=== PATIENT | male | born 1995 | race Caucasian/White ===

== ENCOUNTER 2019-11-13 22:02 | Emergency (ER) | payer SELFPAY ==
[2019-11-13 22:22] VITALS: BP 156/97; PULSE 109; RESP 14; TEMP 36.9; O2SAT 97; BMI 38.0
== END 2019-11-14 01:33 ==
PROVIDERS: Emergency Provider Physician Assistant
DX: Z53.21 Procedure and treatment not carried out due to patient leaving prior to being seen by health care provider (principal)
CPT/HCPCS: 99281

== ENCOUNTER 2020-04-15 14:11 | Emergency (ER) | payer SELFPAY ==
[2020-04-15 14:12] VITALS: BP 137/91; PULSE 94; RESP 18; TEMP 37; O2SAT 98; BMI 33.9
--- NOTE | 2020-04-15 14:16 | XR_ITS ---
WS: [id number] XR ankle LT min 3V* [id number] REASON FOR EXAM: injury FINDINGS: The ankle mortise is intact. No fracture or focal bone lesion. Soft tissue swelling without other soft tissue abnormality XR/XR ankle LT min 3V* [id number] IMPRESSION: No acute abnormality.
[2020-04-15 15:15] VITALS: PULSE 95; O2SAT 96
--- NOTE | 2020-04-15 15:17 | W.ED.EXTPRO ---
HPI - Extremity Problem General: Chief complaint: Extremity Injury, Lower Stated complaint: left ankle injury Time Seen by Provider: 04/15/20 14:13 Source: patient Mode of arrival: ambulatory Limitations: no limitations History of Present Illness: HPI Narrative: 24-year-old male patient presents to the emergency department complaining of left ankle pain. Patient states he rolled his ankle a few days ago. Patient states the swelling has progressed and the pain has worsened. Patient denies any other injury or trauma. Patient states he has good sensation to his ankle. Review of Systems General: Reports: 10 or more systems reviewed and unremarkable except in HPI and below Musc: Reports: extremity pain and extremity swelling; Denies: neck pain or back pain Physical Exam Const: COMMON NORMALS: no acute distress, average body habitus, patient oriented x3, no limitations, healthy appearing, alert and well nourished Extremity: LEFT LOWER EXTREMITY: Yes ankle joint (Patient has no obvious deformity but does have area of edema to the medial ) Left ankle: Yes neurovascular exam (Patient is neurovascularly intact distal to injury) Neuro: COMMON NORMALS: patient oriented x3 SENSORIUM/ORIENTATION: Yes alert Course Vital Signs: Vital signs: Vital Signs Temperature 98.6 F 04/15/20 14:12 Pulse Rate 95 04/15/20 15:15 Respiratory Rate 18 04/15/20 14:12 Blood Pressure 137/91 04/15/20 14:12 Pulse Oximetry 96 04/15/20 15:15 MDM - Extremity (Nontraumatic) MDM Narrative: Medical decision making narrative: Patient is well-appearing nontoxic and in no acute distress. Patient is neurovascularly intact distal to injury. Patient's x-ray does not show any acute fractures or dislocations. Patient's findings are consistent with a ankle sprain. I will put patient in a Aircast and give him crutches and have him follow-up with his primary care physician. Patient advised if no improvement in 1 to 2 weeks for have a repeat x-ray. Return precautions advised home care instructions reviewed patient is medically cleared and appropriate for discharge Discharge Plan Discharge Patient Disposition: Home Clinical Impression: Ankle sprain and strain Condition: Stable Prescriptions: No Action ibuprofen 200 mg Tablet 200 mg PO Q6H PRN (Reason: Pain) RF: 0 Excedrin Migraine 250-250-65 mg Tablet 1 tab PO Q6H PRN (Reason: Migraine Headache) RF: 0 Discharge Orders: Discharge ED (Routine); Ordered 04/15/20 Ordered By: Tessie Casiano Discharge Diet: Advance as tolerated Discharge Activity: Use walker/crutches as instructed Activity Restrictions/Additional Instructions: Please use brace and crutches for 1-2 weeks and if no improvement plese have repeat xray Follow up with PCP Rest Ice Elevate Coding Level of Care Code ED Curtain Feller Blindstitch for Burt Brenner
== END 2020-04-15 15:17 | disposition home or self-care (01) ==
PROVIDERS: Emergency Provider Registered Nurse
DX: S93.402A Sprain of unspecified ligament of left ankle, initial encounter (principal); S96.912A Strain of unspecified muscle and tendon at ankle and foot level, left foot, initial encounter; X50.1XXA Overexertion from prolonged static or awkward postures, initial encounter
CPT/HCPCS: 12345; 73610; 99281; 99283; E0114

== ENCOUNTER 2020-09-30 14:07 | Emergency (ER) | payer SELFPAY ==
[2020-09-30 14:44] VITALS: BP 145/92; PULSE 85; RESP 18; TEMP 36.8; O2SAT 99; BMI 39.0
--- NOTE | 2020-09-30 15:13 | W.ED.DENTAL ---
HPI - Dental/Oral General: Chief complaint: Dental/Oral Stated complaint: Swelling in Face/Mouth Time Seen by Provider: 09/30/20 14:59 History of Present Illness: HPI Narrative: Patient is a 25-year-old male comes to the ED with dental pain. Patient says symptoms started 3 days ago. Tooth #31 is causing patient pain. He does not have a dentist that he sees and is calling around to get dental appointment set up. Denies any fever or chills or trouble breathing. Associated symptoms: Denies fever(s) or odynophagia Review of Systems Const: Denies: fever(s), chills or fatigue Eyes: Denies: change in vision or eye discomfort ENMT: Reports: dental pain; Denies: throat pain, odynophagia, nasal discharge or nasal congestion Card: Denies: chest pain, palpitations, edema, swelling of feet/ankles, dyspnea on exertion or orthopnea Resp: Denies: dyspnea, productive cough or non-productive cough GI: Denies: abdominal pain, nausea, vomiting, diarrhea, constipation or hematochezia : Denies: flank pain, difficulty urinating, dysuria or hematuria Musc: Denies: neck pain, back pain or extremity swelling Skin/Breast: Denies: rash or new lesions Neuro: Denies: headache(s), numbness in extremities or weakness in extremities Physical Exam Const: COMMON NORMALS: patient oriented x3 and alert GENERAL APPEARANCE: cooperative and comfortable HENMT: COMMON NORMALS: normocephalic HEAD & SCALP: normocephalic MOUTH: Normal oral and palatal mucosa present TEETH & GINGIVA: Yes caries and Yes poor dentition THROAT: posterior oropharynx normal and uvula midline Neck/C-Spine: COMMON NORMALS: supple GENERAL: Yes normal visual inspection Resp: COMMON NORMALS: normal respiratory effort, No retractions, No use of accessory muscles and clear to auscultation bilaterally AUSCULTATION: clear to auscultation bilaterally Cardio: COMMON NORMALS: regular rate, regular rhythm, S1 normal heart sound present, S2 normal heart sound present, No gallops present (Cardio), No clicks present (Cardio), No murmurs present (Cardio) and Peripheral pulses 2+ throughout RATE: regular rate RHYTHM: regular rhythm HEART SOUNDS: S1 normal heart sound present and S2 normal heart sound present PERIPHERAL PULSES: Peripheral pulses 2+ throughout GI: COMMON NORMALS: Normal to inspection, nondistended, normoactive bowel sounds present, Soft to palpation, non-tender and no masses PALPATION: Yes Soft to palpation : COMMON NORMALS: Yes no CVA tenderness BLADDER/KIDNEY EXAM: Yes no CVA tenderness Back/Pelvis: COMMON NORMALS: no CVA tenderness Extremity: COMMON NORMALS: normal to inspection Neuro: COMMON NORMALS: patient oriented x3 and moves all extremities SENSORIUM/ORIENTATION: Yes alert Skin: GENERAL SKIN EXAM: dry skin Course Vital Signs: Vital signs: Vital Signs Temperature 98.3 F 09/30/20 16:01 Pulse Rate 85 09/30/20 14:44 Respiratory Rate 18 09/30/20 16:01 Blood Pressure 145/92 09/30/20 14:44 Pulse Oximetry 99 09/30/20 16:01 MDM - Dental/Oral MDM Narrative: Medical decision making narrative: Patient is a 25-year-old male comes to the ED with dental pain. Patient has right upper maxillary dental pain and tooth decay. Patient has extensive dental caries. patient was put on a prescription of clindamycin and discharged home. He was told to contact the dentist to set up an appointment for further evaluation for dental pain. Patient stood agree with plan. Discharge Plan Discharge Patient Disposition: Home Clinical Impression: Pain due to dental caries Condition: Stable Prescriptions: New ibuprofen 800 mg tablet 800 mg PO Q8H PRN (Reason: pain) Qty: 15 RF: 0 clindamycin HCl 150 mg capsule 300 mg PO QID 7 Days Qty: 56 RF: 0 No Action ibuprofen 200 mg Tablet 200 mg PO Q6H PRN (Reason: Pain) RF: 0 Excedrin Migraine 250-250-65 mg Tablet 1 tab PO Q6H PRN (Reason: Migraine Headache) RF: 0 Discharge Orders: Discharge ED (Routine); Ordered 09/30/20 Ordered By: Manjit Moreno Discharge Diet: Regular Discharge Activity: Resume usual activity Patient Instructions: Dental Caries (ED) Activity Restrictions/Additional Instructions: Follow-up with dentist to get dental pain evaluated. Take medications as prescribed. Return to the ER or your medical provider if condition worsens. Please read and understand discharge instructions. Thank you for choosing [facility] for your healthcare needs today. Please realize this is an emergency room and that we are providing you with a medical screening exam and this may not be complete and all inclusive of all the testing and or work up that you may need to determine your ailment or severity of your illness. It is very important that you follow up as instructed or that you return to the Emergency Department should you have concerns or if your condition changes or worsens in any way. Coding Level of Care Code ED Charge Authorizer for Burt Fwd Exam Comprehensive
[2020-09-30 16:01] VITALS: RESP 18; TEMP 36.8; O2SAT 99
== END 2020-09-30 16:01 | disposition home or self-care (01) ==
PROVIDERS: Emergency Provider Physician Assistant
DX: K02.9 Dental caries, unspecified (principal)
CPT/HCPCS: 99281

== ENCOUNTER 2022-08-17 16:26 | Emergency (ER) | payer MEDICAID, SELFPAY ==
[2022-08-17 16:45] VITALS: BP 141/99; PULSE 90; RESP 20; TEMP 36.3; O2SAT 96; BMI 34.7
--- NOTE | 2022-08-17 17:02 | XRR_ITS ---
PROCEDURE INFORMATION: Exam: XR Chest Exam date and time: 08/17/2022 5:24 PM Age: 27 years old Clinical indication: Cough; Additional info: SOB TECHNIQUE: Imaging protocol: Radiologic exam of the chest. Views: 1 view. COMPARISON: No relevant prior studies available. FINDINGS: Lungs: The lungs are clear. Pleural spaces: Unremarkable. No pleural effusion. No pneumothorax. Heart/Mediastinum: Unremarkable. No cardiomegaly. Bones/joints: Unremarkable. XR/XR chest 1V portable [id number] IMPRESSION: No acute cardiopulmonary abnormality.
--- NOTE | 2022-08-17 17:17 | W.ED.URI ---
HPI - URI/Sore Throat General: Chief Complaint: Upper Respiratory Infection Stated Complaint: inhaled dust on , sob Time Seen by Provider: 08/17/22 17:17 History of Present Illness: 27-year-old male patient comes in today with cough and congestion. Patient reports 1 week ago he was cleaning out a truck that had a large amount of dust in it. Since then he has increased cough and congestion. Patient does have a history of asthma. Patient appears nontoxic. Patient reports he has plenty of albuterol and steroid inhaler at home. Associated symptoms: Deny chest pain, fever(s), nausea or vomiting Review of Systems General: Reports: 10 or more systems reviewed and unremarkable except in HPI and below Const: Denies: fever(s) Eyes: Denies: change in vision ENMT: Reports: throat pain Card: Denies: chest pain Resp: Reports: non-productive cough and wheezing GI: Denies: nausea or vomiting : Denies: difficulty urinating Skin/Breast: Denies: rash Physical Exam Const: COMMON NORMALS: alert HENMT: COMMON NORMALS: normocephalic and Normal external nose present HEAD & SCALP: normocephalic NOSE: Normal external nose present MOUTH: Normal oral and palatal mucosa present Neck/C-Spine: COMMON NORMALS: full ROM Resp: COMMON NORMALS: normal respiratory effort AUSCULTATION: wheezes Cardio: COMMON NORMALS: regular rate and regular rhythm RATE: regular rate RHYTHM: regular rhythm GI: COMMON NORMALS: Soft to palpation PALPATION: Yes Soft to palpation Extremity: COMMON NORMALS: no pedal edema Neuro: SENSORIUM/ORIENTATION: Yes alert Skin: COMMON NORMALS: turgor normal GENERAL SKIN EXAM: turgor normal Course Vital Signs: Vital signs: Vital Signs Temperature 97.3 F L 08/17/22 16:45 Pulse Rate 90 08/17/22 16:45 Respiratory Rate 20 H 08/17/22 16:45 Blood Pressure 141/99 08/17/22 16:45 Pulse Oximetry 96 08/17/22 16:45 Oxygen Delivery Me thod Room Air 08/17/22 16:45 MDM - URI/Sore Throat Medical Decision Making 27-year-old male patient comes in today for complaints of cough, wheezing, chest congestion since last week. On exam patient appears nontoxic. Lungs have inspiratory wheezes. Good air movement into the bases. Skin is warm and dry. Vital signs are normal. Differential diagnosis includes asthma exacerbation, acute bronchitis, pneumonia. Chest x-ray showed no obvious infiltrates. Patient was given 10 mg dexamethasone IM, and started on doxycycline 100 mg twice a day. Patient was recommended continue with his inhalers as ordered. Recommend follow-up with primary care for further instruction. Return to ED for worsening symptoms. Discharge Plan Discharge Condition: Stable Prescriptions: No Action ibuprofen 200 mg Tablet 200 mg PO Q6H PRN (Reason: Pain) Excedrin Migraine 250-250-65 mg Tablet 1 tab PO Q6H PRN (Reason: Migraine Headache) ibuprofen 800 mg tablet 800 mg PO Q8H PRN (Reason: pain) Qty: 15 0RF Coding Level of Care Code ED Stewardess Supervisor for Burt Brenner
[2022-08-17] MEDS: dexamethasone 10 mg/mL INJ IM (17:55)
[2022-08-17] MEDS: doxycycline 100 mg Tablet PO (17:55)
--- NOTE | 2022-08-21 11:02 | DCPLANNER ---
wind site manager called patient due to no primary care - patient stated that he does not have a provider, and he does not have insurance. wind site manager gave patient the information to [facility], where patient can apply for the sliding scale.
== END 2022-08-17 18:03 | disposition home or self-care (01) ==
PROVIDERS: Emergency Provider Nurse Practitioner Family
DX: R05.9 Cough, unspecified (principal)
CPT/HCPCS: 71045; 96372; 99284; J1100

== ENCOUNTER 2023-04-10 05:34 | Emergency (ER) | payer OTHER, MEDICAID, SELFPAY ==
[2023-04-10 05:36] VITALS: BP 137/95; PULSE 102; RESP 20; TEMP 37.2; O2SAT 97; BMI 36.9
--- NOTE | 2023-04-10 05:44 | XRR_ITS ---
PROCEDURE INFORMATION: Exam: XR Right Foot Exam date and time: 04/10/2023 5:56 AM Age: 27 years old Clinical indication: Pain; Foot; Right TECHNIQUE: Imaging protocol: Radiologic exam of the right foot. Views: 3 or more views. COMPARISON: No relevant prior studies available. FINDINGS: Bones/joints: Normal. No fracture or dislocation. No acute osseous or joint abnormality. Soft tissues: Normal. XR/XR foot RT min 3V* [id number] IMPRESSION: No acute findings.
--- NOTE | 2023-04-10 05:57 | ED_ITS ---
HPI - Extremity Problem General: Chief complaint: Extremity Injury, Lower Stated complaint: Right foot injury Time Seen by Provider: 04/10/23 05:50 Source: patient Mode of arrival: ambulatory History of Present Illness: 27-year-old male presents emergency room complaining of right foot pain dropped a tool on his foot 2 days ago. He has been able to walk and did work yesterday has increasing pain is a small laceration plantar surface of his fourth toe. Patient is not diabetic. He has been able to bear weight with mild pain. MD Complaint: extremity pain Onset (ago): hour(s) Location: right (foot) Quality: sharp Relieving factors: nothing Exacerbating factors: nothing Associated symptoms: Deny arthralgias, chest pain, fever(s), myalgias, rash or short of breath Review of Systems Const: Denies: fever(s) Card: Denies: chest pain Resp: Denies: dyspnea GI: Denies: abdominal pain : Denies: dysuria, urinary frequency or urinary urgency Musc: Denies: neck pain or back pain Skin/Breast: Denies: rash PFSH ED PFSH: Medical History Psychiatric care Asthma HTN (hypertension) with goal to be determined ADD (attention deficit disorder) Bipolar 1 disorder Post traumatic stress disorder (PTSD) Dental caries Surgical History History of hernia surgery Family History Father Additional heart attack (anterolateral wall) Stroke Mother COPD (chronic obstructive pulmonary disease) Social History Smoking and tobacco/nicotine status: current every day tobacco/nicotine user Quit status (tobacco/nicotine): not considering quitting Second hand smoke exposure: No Alcohol intake: former Substance/Drug Use: former Physical Exam Const: COMMON NORMALS: no acute distress GENERAL APPEARANCE: cooperative and comfortable ORIENTATION/CONSCIOUSNESS: Yes awake, Yes oriented to person, Yes oriented to place and Yes oriented to time HENMT: COMMON NORMALS: normocephalic, atraumatic and hearing grossly normal bilaterally HEAD & SCALP: normocephalic and atraumatic Resp: COMMON NORMALS: normal respiratory effort, No retractions and No use of accessory muscles Extremity: OTHER: Right foot, moderate redness and swelling slight induration around the third and fourth toes. Plantar surface over the MTP joint of the fourth toe there is a small laceration there is some maceration to it there is no active drainage. He cannot express any fluid. Proximally there is lymphangitic spread to the level of the ankle. No popliteal fossa lymph nodes noted. Area is tender to the touch neurovascularly intact. Neuro: SENSORIUM/ORIENTATION: Yes oriented to person, Yes oriented to place and Yes oriented to time Skin: COMMON NORMALS: no rashes or lesions noted GENERAL SKIN EXAM: no rashes or lesions noted Course Vital Signs: Vital signs: Vital Signs Temperature 98.9 F 04/10/23 05:36 Pulse Rate 102 H 04/10/23 05:36 Respiratory Rate 20 H 04/10/23 05:36 Blood Pressure 137/95 04/10/23 05:36 Pulse Oximetry 97 04/10/23 05:36 MDM - Extremity (Nontraumatic) Medical Decision Making No fracture on x-ray of the right foot. No fever patient states denies being diabetic. Will start him on Bactrim and apply topical mupirocin to the wound under the toe. At this point wound of the toes been open for 2 days and is very amenable to laceration repair will leave open. Started on the Bactrim he does not have a primary care doctor will have him follow-up with the podiatry clinic. Medical Records I reviewed the patient's medical records. Lab Data I reviewed the patient's lab results. XR interpretation done by ED provider, pending radiology final review Discharge Plan Discharge Patient Disposition: Home Clinical Impression: Cellulitis and abscess of foot Condition: Stable Prescriptions: New Bactrim DS 800-160 mg tablet 1 tab PO BID 7 Days Qty: 14 0RF mupirocin 2 % ointment 1 applic topical BID Qty: 15 0RF No Action lisinopril 20 mg tablet 20 mg PO DAILY Qty: 30 5RF hydrochlorothiazide 25 mg tablet 25 mg PO DAILY Qty: 30 5RF albuterol sulfate 90 mcg/actuation HFA aerosol inhaler 2 puff inhalation Q6H PRN (Reason: shortness of breath or wheezing) Qty: 8.5 3RF montelukast 10 mg tablet 10 mg PO DAILY Qty: 30 5RF ibuprofen 200 mg Tablet 200 mg PO Q6H PRN (Reason: Pain) Excedrin Migraine 250-250-65 mg Tablet 1 tab PO Q6H PRN (Reason: Migraine Headache) Discharge Orders: Discharge ED (Routine); Ordered 04/10/23 Ordered By: Kirill Liao Discharge Diet: Usual diet Discharge Activity: Limit activity as instructed Patient Instructions: Opioid Safety, Pain Management Activity Restrictions/Additional Instructions: Thank you for choosing [facility] for your healthcare needs today. Please realize this is an emergency room and that we are providing you with a medical screening exam and this may not be complete and all inclusive of all the testing and or work up that you may need to determine your ailment or severity of your illness. It is very important that you follow up as instructed or that you return to the Emergency Department should you have concerns or if your condition changes or worsens in any way. You were seen today for pain in your foot. Your x-ray was normal and to have a cellulitis. Recommend that you start on oral antibiotics 1 pill twice daily. bowling alley manager will make arrangements for you to follow-up with the podiatry clinic. You should try to keep your foot elevated is much as possible keep wound clean and dry and apply topical antibiotic ointment to the small laceration under the fourth toe Coding Level of Care Code ED Clipper Machine Operator for Burt Brenner
[2023-04-10 06:47] VITALS: BP 137/95; PULSE 95; RESP 16; O2SAT 100
--- NOTE | 2023-04-12 08:09 | DCPLANNER ---
Referral was sent to podiatry on 04/12/23 at 0810. Clinic to contact patient.
== END 2023-04-10 06:49 | disposition home or self-care (01) ==
PROVIDERS: Emergency Provider Family Medicine
DX: S91.114A Laceration without foreign body of right lesser toe(s) without damage to nail, initial encounter (principal); L03.115 Cellulitis of right lower limb; W20.8XXA Other cause of strike by thrown, projected or falling object, initial encounter
CPT/HCPCS: 36415; 73630; 87040; 99284

== ENCOUNTER → 2023-04-12 15:02 | Outpatient (BNVA) | payer OTHER, MEDICAID, SELFPAY | PROVIDERS: Visit Provider Podiatrist Foot & Ankle Surgery | DX: L03.119 Cellulitis of unspecified part of limb (principal); L02.619 Cutaneous abscess of unspecified foot | CPT/HCPCS: 85007; 85027; 85651; 86140 ==

== ENCOUNTER 2024-01-07 21:43 | Emergency (ER) | payer MEDICAID, SELFPAY ==
[2024-01-07 21:44] VITALS: BP 130/67; PULSE 86; RESP 84; TEMP 36.6; O2SAT 99; BMI 29.5
--- NOTE | 2024-01-07 21:54 | XRR_ITS ---
PROCEDURE INFORMATION: Exam: XR Chest Exam date and time: 01/07/2024 10:03 PM Age: 28 years old Clinical indication: Other: Syncope TECHNIQUE: Imaging protocol: Radiologic exam of the chest. Views: 1 view. COMPARISON: CR XR chest 1V portable [id number] 08/17/2022 5:24 PM FINDINGS: Lungs: Clear, symmetrically inflated lungs. Pleural spaces: No pleural effusion. No pneumothorax. Heart/Mediastinum: Cardiac silhouette is normal in size for technique. Bones/joints: Age appropriate. XR/XR chest 1V portable [id number] IMPRESSION: No acute cardiopulmonary abnormality.
--- NOTE | 2024-01-07 21:54 | ECG_ITS ---
[facility] Test Date: 2024-01-07 Pat Name: Sumeet Trevizo Department: Room: Gender: Male Extended Day Teacher: : 1995 Requested By: Tulio Farrar Order Number: [id number] Willy MD: AGUSTINA ROUSSEAU Measurements Intervals [place] Rate: 84 P: 48 WI: 165 QRS: -22 QRSD: 114 T: 0 QT: 359 QTc: 426 Interpretive Statements SINUS RHYTHM BORDERLINE LEFT AXIS DEVIATION [QRS AXIS < -20] LOW QRS VOLTAGE IN PRECORDIAL LEADS [QRS DEFLECTION < 1.0 mV IN CHEST LEADS] INCOMPLETE RIGHT BUNDLE BRANCH BLOCK [90+ ms QRS DURATION, TERMINAL R IN V1/V2, 40+ ms S IN I/aVL/V4/V5/V6] MINIMAL VOLTAGE CRITERIA FOR LVH, CONSIDER NORMAL VARIANT [MEETS CRITERIA IN ONE OF: R(aVL), S(V1), R(V5), R(V5/V6)+S(V1)] No previous ECG available for comparison Electronically Signed On 01-09-2024 18:53:05 CDT by AGUSTINA ROUSSEAU [id number]
[2024-01-07 22:06] LABS: Basophils % 0.4 %; Eosinophils # 0.5 10^3/uL (0.0-0.8); Eosinophils % 4.4 %; Hematocrit 48.1 % (37-53); Lymphocytes # 2.6 10^3/uL (0.8-4.8); Lymphocytes % 24.7 %; Mean Corpuscular HGB Conc 32.8 g/dL (30-55); Mean Corpuscular Hemoglobin 29.3 pg (27-33); Mean Corpuscular Volume 89.2 fl (82-101); Monocytes # 0.9 10^3/uL (0.2-0.9); Monocytes % 8.7 %; Neutrophils # 6.34 10^3/uL (1.8-7.7); Neutrophils % 61.5 %; Nucleated Red Blood Cells % 0 %; Platelet Count 311 10^3/cmm (157-399); Red Blood Count 5.39 10^6/uL (3.85-5.65); Red Cell Distribution Width 12.9 % (12.1-15.1); White Blood Count 10.31 10^3/uL (3.29-11.43)
[2024-01-07 22:18] LABS: Charge for UA Resulting for Rev
[2024-01-07 22:30] LABS: Troponin(5th) Baseline 9 ng/L (0-15)
[2024-01-07 22:31] VITALS: BP 156/122; PULSE 85; RESP 16; O2SAT 98
[2024-01-07 22:33] LABS: Alanine Aminotransferase 32 U/L (0-41); Albumin Level 4.5 g/dL (3.5-5.2); Alkaline Phosphatase 80 U/L (40-130); Anion Gap 17.4 (5-19); Aspartate Amino Transferase 19 U/L (0-40); Blood Urea Nitrogen 11 mg/dL (6-20); Calcium 9.3 mg/dL (8.5-10.5); Carbon Dioxide 24 mmol/L (22-29); Chloride 103 mmol/L (98-107); Creatinine Clr Calc Pharmacy 120.2471; Globulin 3.1 g/dL (1.3-4.6); Glomerular Filtration Rate 87.7 mL/min (90-130); Glucose 108 mg/dL (65-115); Magnesium 2.1 mg/dL (1.7-2.3); Osmolality Calculated 290 mOsm/kg (285-295); Potassium 4.4 mmol/L (3.5-5.1); Sodium 140 mmol/L (136-145); Thyroid Stimulating Hormone 0.53 uIU/mL (0.27-4.20); Total Bilirubin 0.3 mg/dL (0.15-1.2); Total Protein 7.6 g/dL (6.6-8.7)
[2024-01-07 22:46] LABS: Amphetamines Screen Urine Negative (Negative); Barbiturates Screen Urine Negative (Negative); Benzodiazepines Screen Urine Negative (Negative); Cocaine Screen Urine Negative (Negative); Opiate Screen Urine Negative (Negative); PCP Screen Urine Negative (Negative); THC Screen Urine Negative (Negative)
[2024-01-07 23:07] LABS: Bilirubin Urine Neg (Negative); Blood Urine Neg (Negative); Glucose Urine UA Norm (Normal); Ketones Urine Negative (Negative); Leukocyte Esterase Urine Negative (Negative); Nitrate Urine Negative (Negative); Protein Urine Neg (Negative); Specific Gravity, Urine 1.018 (1.005-1.030); Urine Appearance Clear (CLEAR); Urine Color Yellow (Yellow); pH Urine 5.5 (5-7)
--- NOTE | 2024-01-07 23:14 | W.ED.SYNCOPE ---
HPI - Syncope General: Chief Complaint: Syncope Stated Complaint: SYNCOPE Time Seen by Provider: 01/07/24 21:46 History of Present Illness: Patient reports to the ER by EMS from senior living. Patient said he felt hot and went to get out of his bunk he got lightheaded dizzy and passed out. Sherry found him on the floor. Patient does not recall really any of the events patient is alert and oriented x 4 able to ambulate without difficulty to the restroom and back. Patient has no complaints at this time. There is no obvious injuries. Related Data Home Medications Medication Instructions Recorded Confirmed [id number] 250 1 tab PO Q6H PRN Migraine Headache 04/15/20 04/19/23 mg-250 mg-65 mg tablet (Excedrin Migraine) ibuprofen 200 mg tablet 200 mg PO Q6H PRN Pain 04/15/20 04/19/23 Previous Rx's Medication Instructions Recorded albuterol sulfate 90 mcg/actuation 2 puff inhalation Q6H PRN 10/02/22 aerosol inhaler shortness of breath or wheezing #8.5 grams hydrochlorothiazide 25 mg tablet 25 mg PO DAILY blood pressure #30 10/02/22 tabs lisinopril 20 mg tablet 20 mg PO DAILY blood pressure #30 10/02/22 tabs montelukast 10 mg tablet 10 mg PO DAILY asthma #30 tabs 10/02/22 mupirocin 2 % topical ointment 1 applic topical BID #15 grams 04/10/23 ciprofloxacin HCl 500 mg tablet 500 mg PO BID #14 tabs 04/12/23 clindamycin HCl 300 mg capsule 300 mg PO TID #21 caps 04/12/23 Allergies Allergy/AdvReac Type Severity Reaction Status Date / Time haloperidol Allergy ALGY-Anaphy Verified 04/19/23 15:24 laxis Review of Systems General: Reports: 10 or more systems reviewed and unremarkable except in HPI and below PFSH ED PFSH: Medical History Psychiatric care Asthma HTN (hypertension) with goal to be determined ADD (attention deficit disorder) Bipolar 1 disorder Post traumatic stress disorder (PTSD) Dental caries Surgical History History of hernia surgery Family History Father Additional heart attack (anterolateral wall) Stroke Mother COPD (chronic obstructive pulmonary disease) Social History Smoking and tobacco/nicotine status: current every day tobacco/nicotine user cigarettes and smokeless tobacco Smokeless tobacco user: chewing tobacco Quit status (tobacco/nicotine): not considering quitting Second hand smoke exposure: No Alcohol intake: former Substance/Drug Use: former Physical Exam Const: COMMON NORMALS: no acute distress, average body habitus, patient oriented x3, no limitations, healthy appearing, alert and well nourished HENMT: COMMON NORMALS: normocephalic, atraumatic, hearing grossly normal bilaterally, external ears normal, Normal external nose present and moist oral mucous membranes HEAD & SCALP: normocephalic and atraumatic NOSE: Normal external nose present EXTERNAL EAR: Yes external ears normal Neck/C-Spine: COMMON NORMALS: full ROM, no lymphadenopathy, supple, no meningeal signs, no JVD and Thyroid normal THYROID: Thyroid normal Chest: COMMONS NORMALS: normal inspection of the chest and normal palpation of entire chest wall Resp: COMMON NORMALS: normal respiratory effort, No retractions, No use of accessory muscles and clear to auscultation bilaterally AUSCULTATION: clear to auscultation bilaterally Cardio: COMMON NORMALS: no JVD, regular rate, regular rhythm, S1 normal heart sound present, S2 normal heart sound present, No gallops present (Cardio), No clicks present (Cardio), No murmurs present (Cardio) and No rub (Cardio) RATE: regular rate RHYTHM: regular rhythm HEART SOUNDS: S1 normal heart sound present and S2 normal heart sound present GI: COMMON NORMALS: Normal to inspection, nondistended, normoactive bowel sounds present, Soft to palpation, non-tender, No hepatosplenomegaly present and no masses PALPATION: Yes Soft to palpation and Yes No hepatosplenomegaly present Neuro: COMMON NORMALS: patient oriented x3 SENSORIUM/ORIENTATION: Yes alert MENINGEAL SIGNS: Yes no meningeal signs Course Vital Signs: Vital signs: Vital Signs Temperature 98 F 01/07/24 21:44 Pulse Rate 85 01/07/24 22:31 Respiratory Rate 16 01/07/24 22:31 Blood Pressure 156/122 01/07/24 22:31 Pulse Oximetry 98 01/07/24 22:31 MDM - Syncope Medical Decision Making Patient the workup started and in the middle of it before get all lab work that he decided he did not want to stay and wanted to leave. Patient can leave AMA. Lab Data 01/07/24 21:33 01/07/24 21:33 Radiology Impressions Chest X-Ray 01/07/24 21:54 IMPRESSION: No acute cardiopulmonary abnormality. Laboratory Results WBC 10.31 10^3/uL (3.29-11.43) 01/07/24 21:33 RBC 5.39 10^6/uL (3.85-5.65) 01/07/24 21:33 Hgb 15.80 g/dL (11.27-16.99) 01/07/24 21:33 Hct 48.1 % (37-53) 01/07/24 21:33 MCV 89.2 fl (82-101) 01/07/24 21:33 MCH 29.3 pg (27-33) 01/07/24 21:33 MCHC 32.8 g/dL (30-55) 01/07/24 21:33 RDW 12.9 % (12.1-15.1) 01/07/24 21:33 Plt Count 311 10^3/cmm (157-399) 01/07/24 21:33 MPV 11.0 fL (7.4-10.4) H 01/07/24 21:33 Neut % (Auto) 61.5 % 01/07/24 21:33 Lymph % (Auto) 24.7 % 01/07/24 21:33 [place] % (Auto) 8.7 % 01/07/24 21:33 Eos % (Auto) 4.4 % 01/07/24 21:33 Baso % (Auto) 0.4 % 01/07/24 21:33 Neut # (Auto) 6.34 10^3/uL (1.8-7.7) 01/07/24 21:33 Lymph # (Auto) 2.6 10^3/uL (0.8-4.8) 01/07/24 21:33 [place] # (Auto) 0.9 10^3/uL (0.2-0.9) 01/07/24 21:33 Eos # (Auto) 0.5 10^3/uL (0.0-0.8) 01/07/24 21:33 Baso # (Auto) 0.0 10^3/uL (0.0-0.1) 01/07/24 21:33 Nucleated RBC % (auto) 0 % 01/07/24 21:33 Nucleated RBCs # 0.0 /100WBC 01/07/24 21:33 Sodium 140 mmol/L (136-145) 01/07/24 21:33 Potassium 4.4 mmol/L (3.5-5.1) 01/07/24 21:33 Chloride 103 mmol/L (98-107) 01/07/24 21:33 Carbon Dioxide 24 mmol/L (22-29) 01/07/24 21:33 Anion Gap 17.4 (5-19) 01/07/24 21:33 BUN 11 mg/dL (6-20) 01/07/24 21:33 Creatinine 1.0 mg/dL (0.7-1.2) 01/07/24 21:33 GFR Calculation 87.7 mL/min (90-130) L 01/07/24 21:33 Glucose 108 mg/dL (65-115) 01/07/24 21:33 Calculated Osmolality 290 mOsm/kg (285-295) 01/07/24 21:33 Calcium 9.3 mg/dL (8.5-10.5) 01/07/24 21:33 Magnesium 2.1 mg/dL (1.7-2.3) 01/07/24 21:33 Total Bilirubin 0.3 mg/dL (0.15-1.2) 01/07/24 21:33 AST 19 U/L (0-40) 01/07/24 21:33 ALT 32 U/L (0-41) 01/07/24 21:33 Alkaline Phosphatase 80 U/L (40-130) 01/07/24 21:33 Troponin T Baseline 9 ng/L (0-15) 01/07/24 21:33 Total Protein 7.6 g/dL (6.6-8.7) 01/07/24 21:33 Albumin 4.5 g/dL (3.5-5.2) 01/07/24 21:33 Globulin 3.1 g/dL (1.3-4.6) 01/07/24 21:33 TSH 0.53 uIU/mL (0.27-4.20) 01/07/24 21:33 Urine Color Yellow (Yellow) 01/07/24 21:56 Urine Appearance Clear (CLEAR) 01/07/24 21:56 Urine pH 5.5 (5-7) 01/07/24 21:56 Ur Specific Chromo 1.018 (1.005-1.030) 01/07/24 21:56 Urine Protein Neg (Negative) 01/07/24 21:56 Urine Glucose (UA) Norm (Normal) 01/07/24 21:56 Urine Ketones Negative (Negative) 01/07/24 21:56 Urine Blood Neg (Negative) 01/07/24 21:56 Urine Nitrate Negative (Negative) 01/07/24 21:56 Urine Bilirubin Neg (Negative) 01/07/24 21:56 Urine Urobilinogen 1.0 mg/dL (Negative) 01/07/24 21:56 Ur Leukocyte Esterase Negative (Negative) 01/07/24 21:56 Amorphous Sediment Not Reportable 01/07/24 21:56 Urine Opiates Screen Negative ng/mL (Negative) 01/07/24 21:56 Ur Barbiturates Screen Negative ng/mL (Negative) 01/07/24 21:56 Ur Phencyclidine Scrn Negative ng/mL (Negative) 01/07/24 21:56 Ur Amphetamines Screen Negative ng/mL (Negative) 01/07/24 21:56 U Benzodiazepines Scrn Negative ng/mL (Negative) 01/07/24 21:56 Urine Cocaine Screen Negative ng/mL (Negative) 01/07/24 21:56 U Marijuana (THC) Screen Negative ng/mL (Negative) 01/07/24 21:56 All radiology interpretation(s) finalized by discharge Discharge Plan Discharge Patient Disposition: Left Against Medical Advice Clinical Impression: Left against medical advice Condition: Stable Prescriptions: No Action lisinopril 20 mg tablet 20 mg PO DAILY Qty: 30 5RF hydrochlorothiazide 25 mg tablet 25 mg PO DAILY Qty: 30 5RF albuterol sulfate 90 mcg/actuation HFA aerosol inhaler 2 puff inhalation Q6H PRN (Reason: shortness of breath or wheezing) Qty: 8.5 3RF montelukast 10 mg tablet 10 mg PO DAILY Qty: 30 5RF clindamycin HCl 300 mg capsule 300 mg PO TID Qty: 21 0RF ciprofloxacin HCl 500 mg tablet 500 mg PO BID Qty: 14 0RF ibuprofen 200 mg Tablet 200 mg PO Q6H PRN (Reason: Pain) Excedrin Migraine 250-250-65 mg Tablet 1 tab PO Q6H PRN (Reason: Migraine Headache) mupirocin 2 % ointment 1 applic topical BID Qty: 15 0RF Patient Instructions: Against Medical Advice (ED) Coding Level of Care Code ED Farm Implement Engine Mechanic for Burt Brenner
[2024-01-07 23:25] VITALS: BP 134/108; PULSE 89; RESP 18; O2SAT 99
[2024-01-07 23:28] LABS: Troponin 5 2HR 7.73 ng/L (0-15)
[2024-01-07 23:33] LABS: Troponin 5 2HR Delta -1.27 ABS# (0-10)
== END 2024-01-07 23:36 | disposition left against medical advice (07) ==
PROVIDERS: Emergency Provider Emergency Medicine
DX: R55 Syncope and collapse (principal); Z53.29 Procedure and treatment not carried out because of patient's decision for other reasons; F17.210 Nicotine dependence, cigarettes, uncomplicated; F17.220 Nicotine dependence, chewing tobacco, uncomplicated; I10 Essential (primary) hypertension
CPT/HCPCS: 36415; 71045; 80053; 80306; 81003; 81015; 83735; 84443; 84484; 85025; 93005; 99285

== ENCOUNTER 2024-01-09 20:14 | Emergency (ER) | payer MEDICAID, SELFPAY ==
[2024-01-09 20:14] VITALS: BP 98/65; PULSE 101; RESP 16; TEMP 36.8; O2SAT 96; BMI 34.2
[2024-01-09 20:27] VITALS: BP 131/82; PULSE 96; RESP 18; O2SAT 98
--- NOTE | 2024-01-09 20:28 | ED_ITS ---
HPI - General Adult 2 General: Chief complaint: General Medical Stated complaint: ABD PAIN Time Seen by Provider: 01/09/24 20:16 History of Present Illness: 28-year-old male patient comes in today for feeling of malaise. Patient reports not feeling well for the past few days. Patient appears nontoxic. Patient reports left-sided headache. Related Data Home Medications Medication Instructions Recorded Confirmed [id number]-[id number] 250 1 tab PO Q6H PRN Migraine Headache 04/15/20 04/19/23 mg-250 mg-65 mg tablet (Excedrin Migraine) ibuprofen 200 mg tablet 200 mg PO Q6H PRN Pain 04/15/20 04/19/23 Previous Rx's Medication Instructions Recorded albuterol sulfate 90 mcg/actuation 2 puff inhalation Q6H PRN 10/02/22 aerosol inhaler shortness of breath or wheezing #8.5 grams hydrochlorothiazide 25 mg tablet 25 mg PO DAILY blood pressure #30 10/02/22 tabs lisinopril 20 mg tablet 20 mg PO DAILY blood pressure #30 10/02/22 tabs montelukast 10 mg tablet 10 mg PO DAILY asthma #30 tabs 10/02/22 mupirocin 2 % topical ointment 1 applic topical BID #15 grams 04/10/23 ciprofloxacin HCl 500 mg tablet 500 mg PO BID #14 tabs 04/12/23 clindamycin HCl 300 mg capsule 300 mg PO TID #21 caps 04/12/23 acetaminophen 650 mg 650 mg PO Q8H PRN pain #60 tabs 01/09/24 tablet,extended release ibuprofen 600 mg tablet 600 mg PO Q6H PRN pain #60 tabs 01/09/24 Allergies Allergy/AdvReac Type Severity Reaction Status Date / Time haloperidol Allergy ALGY-Anaphy Verified 04/19/23 15:24 laxis Review of Systems 2 General: Reports: 10 or more systems reviewed and unremarkable except in HPI and below PFSH ED 2 PFSH: Medical History Psychiatric care Asthma HTN (hypertension) with goal to be determined ADD (attention deficit disorder) Bipolar 1 disorder Post traumatic stress disorder (PTSD) Dental caries Surgical History History of hernia surgery Family History Father Additional heart attack (anterolateral wall) Stroke Mother COPD (chronic obstructive pulmonary disease) Social History Smoking and tobacco/nicotine status: current every day tobacco/nicotine user cigarettes and smokeless tobacco Smokeless tobacco user: chewing tobacco Quit status (tobacco/nicotine): not considering quitting Second hand smoke exposure: No Alcohol intake: former Substance/Drug Use: former Physical Exam 2 Const: COMMON NORMALS: alert HENMT: COMMON NORMALS: normocephalic HEAD & SCALP: normocephalic THROAT: posterior oropharynx abnormal erythema Neck/C-Spine: COMMON NORMALS: full ROM Resp: COMMON NORMALS: normal respiratory effort and clear to auscultation bilaterally AUSCULTATION: clear to auscultation bilaterally Cardio: COMMON NORMALS: regular rate and regular rhythm RATE: regular rate RHYTHM: regular rhythm Back/Pelvis: COMMON NORMALS: thoracic and lumbar spine normal to inspection Extremity: COMMON NORMALS: normal to inspection Neuro: SENSORIUM/ORIENTATION: Yes alert Skin: COMMON NORMALS: turgor normal GENERAL SKIN EXAM: turgor normal Course 2 Vital Signs: Vital signs: Vital Signs Temperature 98.2 F 01/09/24 20:14 Pulse Rate 106 H 01/09/24 21:02 Respiratory Rate 18 01/09/24 21:02 Blood Pressure 80/68 01/09/24 21:02 Pulse Oximetry 100 01/09/24 21:02 Oxygen Delivery Me thod Room Air 01/09/24 21:02 [facility] - General Adult Medical Decision Making 28-year-old male patient comes in today for complaints of headache. Patient appears nontoxic. Patient appears no acute distress. Lungs are clear to auscultation. Abdomen soft nontender. Posterior pharynx is slightly erythematous. Differential diagnosis includes but not limited to rhinosinusitis, upper respiratory infection, headache, malingering. CBC and CMP were normal. COVID-19 was negative. Patient has a headache syndrome most likely secondary to a viral syndrome. Recommended lots of fluids plenty of rest and follow-up with primary care. Patient at this time is incarcerated at the senior living annual primary care is available. Recommended acetaminophen and ibuprofen for pain. Lab Data 01/09/24 20:26 01/09/24 20:26 Laboratory Results WBC 10.05 10^3/uL (3.29-11.43) 01/09/24 20: RBC 4.87 10^6/uL (3.85-5.65) 01/09/24 20: Hgb 14.20 g/dL (11.27-16.99) 01/09/24 20:26 Hct 43.9 % (37-53) 01/09/24 20: MCV 90.1 fl (82-101) 01/09/24 20: MCH 29.2 pg (27-33) 01/09/24 20: MCHC 32.3 g/dL (30-55) 01/09/24 20: RDW 12.8 % (12.1-15.1) 01/09/24 20: Plt Count 257 10^3/cmm (157-399) 01/09/24 20: MPV 10.7 fL (7.4-10.4) H 01/09/24 20: Neut % (Auto) 64.8 % 01/09/24 20:26 Lymph % (Auto) 22.5 % 01/09/24 20:26 [place] % (Auto) 6.7 % 01/09/24 20: Eos % (Auto) 5.3 % 01/09/24 20: Baso % (Auto) 0.5 % 01/09/24 20: Neut # (Auto) 6.52 10^3/uL (1.8-7.7) 01/09/24 20: Lymph # (Auto) 2.3 10^3/uL (0.8-4.8) 01/09/24 20:26 [place] # (Auto) 0.7 10^3/uL (0.2-0.9) 01/09/24 20: Eos # (Auto) 0.5 10^3/uL (0.0-0.8) 01/09/24 20: Baso # (Auto) 0.1 10^3/uL (0.0-0.1) 01/09/24 20:26 Nucleated RBC % (auto) 0 % 01/09/24 20: Nucleated RBCs # 0.0 /100WBC 01/09/24 20:26 Sodium 141 mmol/L (136-145) 01/09/24 20:26 Potassium 4.0 mmol/L (3.5-5.1) 01/09/24 20:26 Chloride 107 mmol/L (98-107) 01/09/24 20:26 Carbon Dioxide 29 mmol/L (22-29) 01/09/24 20:26 Anion Gap 9.0 (5-19) 01/09/24 20:26 BUN 9 mg/dL (6-20) 01/09/24 20:26 Creatinine 0.9 mg/dL (0.7-1.2) 01/09/24 20:26 GFR Calculation 99.1 mL/min (90-130) 01/09/24 20:26 Glucose 168 mg/dL (65-115) H 01/09/24 20:26 Calculated Osmolality 295 mOsm/kg (285-295) 01/09/24 20:26 Calcium 8.6 mg/dL (8.5-10.5) 01/09/24 20:26 Total Bilirubin 0.3 mg/dL (0.15-1.2) 01/09/24 20:26 AST 13 U/L (0-40) 01/09/24 20:26 ALT 22 U/L (0-41) 01/09/24 20:26 Alkaline Phosphatase 70 U/L (40-130) 01/09/24 20:26 Total Protein 6.6 g/dL (6.6-8.7) 01/09/24 20:26 Albumin 3.7 g/dL (3.5-5.2) 01/09/24 20:26 Globulin 2.9 g/dL (1.3-4.6) 01/09/24 20:26 Lipase 17 U/L (13-60) 01/09/24 20:26 SARS-CoV-2 Ag (Rapid) negative (Negative) 01/09/24 20:26 No radiology studies performed this visit Discharge Plan Discharge Patient Disposition: Home Clinical Impression: Headache Qualifiers: Headache type: unspecified Headache chronicity pattern: acute headache I ntractability: not intractable Qualified Code(s): R51.9 - Headache, unspecified Condition: Stable Prescriptions: New ibuprofen 600 mg tablet 600 mg PO Q6H PRN (Reason: pain) Qty: 60 0RF acetaminophen 650 mg tablet extended release 650 mg PO Q8H PRN (Reason: pain) Qty: 60 0RF No Action lisinopril 20 mg tablet 20 mg PO DAILY Qty: 30 5RF hydrochlorothiazide 25 mg tablet 25 mg PO DAILY Qty: 30 5RF albuterol sulfate 90 mcg/actuation HFA aerosol inhaler 2 puff inhalation Q6H PRN (Reason: shortness of breath or wheezing) Qty: 8.5 3RF montelukast 10 mg tablet 10 mg PO DAILY Qty: 30 5RF clindamycin HCl 300 mg capsule 300 mg PO TID Qty: 21 0RF ciprofloxacin HCl 500 mg tablet 500 mg PO BID Qty: 14 0RF ibuprofen 200 mg Tablet 200 mg PO Q6H PRN (Reason: Pain) Excedrin Migraine 250-250-65 mg Tablet 1 tab PO Q6H PRN (Reason: Migraine Headache) mupirocin 2 % ointment 1 applic topical BID Qty: 15 0RF Discharge Orders: Discharge ED (Routine); Ordered 01/09/24 Ordered By: Ricky Saldana Patient Instructions: Acute Headache (ED) Activity Restrictions/Additional Instructions: Drink plenty of water and fluids. Use acetaminophen and/or ibuprofen for headache. Follow-up with primary care for further instructions. Coding Level of Care Code ED Affirmative Action Officer for Burt Brenner
[2024-01-09 20:30] LABS: Basophils # 0.1 10^3/uL (0.0-0.1); Basophils % 0.5 %; Eosinophils # 0.5 10^3/uL (0.0-0.8); Eosinophils % 5.3 %; Hematocrit 43.9 % (37-53); Lymphocytes # 2.3 10^3/uL (0.8-4.8); Lymphocytes % 22.5 %; Mean Corpuscular HGB Conc 32.3 g/dL (30-55); Mean Corpuscular Hemoglobin 29.2 pg (27-33); Mean Corpuscular Volume 90.1 fl (82-101); Mean Platelet Volume 10.7 fL (7.4-10.4); Monocytes # 0.7 10^3/uL (0.2-0.9); Monocytes % 6.7 %; Neutrophils # 6.52 10^3/uL (1.8-7.7); Neutrophils % 64.8 %; Nucleated Red Blood Cells % 0 %; Platelet Count 257 10^3/cmm (157-399); Red Blood Count 4.87 10^6/uL (3.85-5.65); Red Cell Distribution Width 12.8 % (12.1-15.1); White Blood Count 10.05 10^3/uL (3.29-11.43)
[2024-01-09 20:49] LABS: Alanine Aminotransferase 22 U/L (0-41); Albumin Level 3.7 g/dL (3.5-5.2); Alkaline Phosphatase 70 U/L (40-130); Aspartate Amino Transferase 13 U/L (0-40); Blood Urea Nitrogen 9 mg/dL (6-20); Calcium 8.6 mg/dL (8.5-10.5); Carbon Dioxide 29 mmol/L (22-29); Chloride 107 mmol/L (98-107); Creatinine Clr Calc Pharmacy 143.4638; Globulin 2.9 g/dL (1.3-4.6); Glomerular Filtration Rate 99.1 mL/min (90-130); Glucose 168 mg/dL (65-115); Lipase 17 U/L (13-60); Osmolality Calculated 295 mOsm/kg (285-295); Sodium 141 mmol/L (136-145); Total Bilirubin 0.3 mg/dL (0.15-1.2); Total Protein 6.6 g/dL (6.6-8.7)
[2024-01-09] MEDS: metoclopramide 10 mg Tablet PO (20:58)
[2024-01-09] MEDS: diphenhydrAMINE 50 mg Capsule PO (20:58)
[2024-01-09] MEDS: dexamethasone 4 mg Tablet 10 MG PO (20:58)
[2024-01-09] MEDS: ketorolac 10 mg Tablet PO (20:58)
[2024-01-09 21:00] LABS: SARS Covid-2 Antigen negative (Negative)
[2024-01-09 21:02] VITALS: BP 80/68; PULSE 106; RESP 18; O2SAT 100
[2024-01-09 21:34] VITALS: BP 113/82; PULSE 93; RESP 18; O2SAT 99
== END 2024-01-09 21:30 | disposition home or self-care (01) ==
PROVIDERS: Emergency Provider Nurse Practitioner Family
DX: R51.9 Headache, unspecified (principal); Z11.52 Encounter for screening for COVID-19; F17.220 Nicotine dependence, chewing tobacco, uncomplicated; I10 Essential (primary) hypertension; F17.210 Nicotine dependence, cigarettes, uncomplicated
CPT/HCPCS: 80053; 83690; 85025; 87426; 99283; J8540; J8597; Q0163

== ENCOUNTER 2024-01-13 20:55 | Emergency (ER) | payer MEDICAID, SELFPAY ==
[2024-01-13 20:57] VITALS: BP 144/92; PULSE 97; RESP 20; TEMP 36.6; O2SAT 97; BMI 35.4
--- NOTE | 2024-01-13 20:58 | XRR_ITS ---
PROCEDURE INFORMATION: Exam: XR Chest Exam date and time: 01/13/2024 9:30 PM Age: 28 years old Clinical indication: Pain; Chest pressure; Additional info: Chest pain TECHNIQUE: Imaging protocol: Radiologic exam of the chest. Views: 1 view. COMPARISON: CR (CHEST, ) 01/07/2024 10:03 PM FINDINGS: Lungs: Unremarkable. No consolidation. Pleural spaces: Unremarkable. No pleural effusion. No pneumothorax. Heart/Mediastinum: Unremarkable. No cardiomegaly. Bones/joints: Unremarkable. XR/XR chest 1V portable [id number] IMPRESSION: No acute findings.
--- NOTE | 2024-01-13 20:59 | ECG_ITS ---
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 Measurements Intervals [place] Rate: 86 P: 51 AK: 167 QRS: -27 QRSD: 110 T: 33 QT: 357 QTc: 427 Interpretive Statements SINUS RHYTHM BORDERLINE LEFT AXIS DEVIATION [QRS AXIS < -20] LOW QRS VOLTAGE IN PRECORDIAL LEADS [QRS DEFLECTION < 1.0 mV IN CHEST LEADS] PATTERN CONSISTENT WITH PULMONARY DISEASE VOLTAGE CRITERIA FOR LVH [MEETS CRITERIA IN ONE OF: R(aVL), S(V1), R(V5), R(V5/V6)+S(V1)] Compared to ECG 01/07/2024 21:52:48 Incomplete right bundle-branch block no longer present Electronically Signed On 01-14-2024 16:45:26 CDT by Christianne Carl M.D. [email or web address]
[2024-01-13 21:04] VITALS: BP 146/85; PULSE 83; O2SAT 97
[2024-01-13 21:12] LABS: Basophils % 0.3 %; Eosinophils # 0.3 10^3/uL (0.0-0.8); Eosinophils % 2.8 %; Hematocrit 44.4 % (37-53); Lymphocytes # 2.5 10^3/uL (0.8-4.8); Lymphocytes % 25.1 %; Mean Corpuscular HGB Conc 32.9 g/dL (30-55); Mean Corpuscular Hemoglobin 29.3 pg (27-33); Mean Corpuscular Volume 89.2 fl (82-101); Mean Platelet Volume 11.3 fL (7.4-10.4); Monocytes # 0.7 10^3/uL (0.2-0.9); Monocytes % 6.7 %; Neutrophils # 6.35 10^3/uL (1.8-7.7); Neutrophils % 64.8 %; Nucleated Red Blood Cells % 0 %; Platelet Count 293 10^3/cmm (157-399); Red Blood Count 4.98 10^6/uL (3.85-5.65); Red Cell Distribution Width 12.5 % (12.1-15.1)
[2024-01-13 21:30] LABS: Alanine Aminotransferase 31 U/L (0-41); Albumin Level 4.2 g/dL (3.5-5.2); Alkaline Phosphatase 67 U/L (40-130); Anion Gap 15.2 (5-19); Aspartate Amino Transferase 24 U/L (0-40); Blood Urea Nitrogen 13 mg/dL (6-20); Calcium 9.3 mg/dL (8.5-10.5); Carbon Dioxide 26 mmol/L (22-29); Chloride 104 mmol/L (98-107); Creatinine Clr Calc Pharmacy 145.9279; Globulin 2.5 g/dL (1.3-4.6); Glomerular Filtration Rate 99.1 mL/min (90-130); Glucose 122 mg/dL (65-115); Osmolality Calculated 293 mOsm/kg (285-295); Potassium 4.2 mmol/L (3.5-5.1); Sodium 141 mmol/L (136-145); Total Bilirubin 0.3 mg/dL (0.15-1.2); Total Protein 6.7 g/dL (6.6-8.7); Troponin(5th) Baseline 7 ng/L (0-15)
[2024-01-13 21:34] VITALS: BP 120/89; PULSE 82; O2SAT 96
--- NOTE | 2024-01-13 21:39 | ED_ITS ---
HPI - Chest Pain 2 General: Chief Complaint: Chest Pain Stated Complaint: CP Time Seen by Provider: 01/13/24 20:57 History of Present Illness: 28-year-old man who presents to the [facility] room by ambulance with police from longterm. He is having chest pain. Over the last week he said 2 or 3 other visits to the emergency room for various ailments. He says he had some central chest pain. It was sharp. Since then it has resolved. No cardiac history. No cough. No fevers. Vitals are normal. Related Data Home Medications Medication Instructions Recorded Confirmed [id number] 250 1 tab PO Q6H PRN Migraine Headache 04/15/20 04/19/23 mg-250 mg-65 mg tablet (Excedrin Migraine) ibuprofen 200 mg tablet 200 mg PO Q6H PRN Pain 04/15/20 04/19/23 Previous Rx's Medication Instructions Recorded albuterol sulfate 90 mcg/actuation 2 puff inhalation Q6H PRN 10/02/22 aerosol inhaler shortness of breath or wheezing #8.5 grams hydrochlorothiazide 25 mg tablet 25 mg PO DAILY blood pressure #30 10/02/22 tabs lisinopril 20 mg tablet 20 mg PO DAILY blood pressure #30 10/02/22 tabs montelukast 10 mg tablet 10 mg PO DAILY asthma #30 tabs 10/02/22 mupirocin 2 % topical ointment 1 applic topical BID #15 grams 04/10/23 ciprofloxacin HCl 500 mg tablet 500 mg PO BID #14 tabs 04/12/23 clindamycin HCl 300 mg capsule 300 mg PO TID #21 caps 04/12/23 acetaminophen 650 mg 650 mg PO Q8H PRN pain #60 tabs 01/09/24 tablet,extended release ibuprofen 600 mg tablet 600 mg PO Q6H PRN pain #60 tabs 01/09/24 Allergies Allergy/AdvReac Type Severity Reaction Status Date / Time haloperidol Allergy ALGY-Anaphy Verified 04/19/23 15:24 laxis Review of Systems 2 Narrative: Constitutional symptoms: Negative except as documented in HPI. Skin symptoms: Negative except as documented in HPI. Eye symptoms: Negative except as documented in HPI. ENMT symptoms: Negative except as documented in HPI. Respiratory symptoms: Negative except as documented in HPI. Cardiovascular symptoms: Negative except as documented in HPI. Gastrointestinal symptoms: Negative except as documented in HPI. Genitourinary symptoms: Negative except as documented in HPI. Musculoskeletal symptoms: Negative except as documented in HPI. Neurologic symptoms: Negative except as documented in HPI. Psychiatric symptoms: Negative except as documented in HPI. Endocrine symptoms: Negative except as documented in HPI. PFSH ED 2 PFSH: Medical History Psychiatric care Asthma HTN (hypertension) with goal to be determined ADD (attention deficit disorder) Bipolar 1 disorder Post traumatic stress disorder (PTSD) Dental caries Surgical History History of hernia surgery Family History Father Additional heart attack (anterolateral wall) Stroke Mother COPD (chronic obstructive pulmonary disease) Social History Smoking and tobacco/nicotine status: current every day tobacco/nicotine user cigarettes and smokeless tobacco Smokeless tobacco user: chewing tobacco Quit status (tobacco/nicotine): not considering quitting Second hand smoke exposure: No Alcohol intake: former Substance/Drug Use: former Physical Exam 2 Narrative: EXAM NARRATIVE: General: Alert, no acute distress. Skin: Warm, dry. Head: Normocephalic, atraumatic. Neck: Supple, trachea midline. Eye: Extraocular movements are intact. Ears, nose, mouth and throat: mucosa moist. Cardiovascular: Regular, Normal peripheral perfusion. Respiratory: Lungs are clear to auscultation, respirations are non-labored, breath sounds are equal, Symmetrical chest wall expansion. Gastrointestinal: Soft, Nontender, Non distended Musculoskeletal: Normal ROM, no deformity. Neurological: Alert and oriented, No focal neurological deficit observed. Psychiatric: Cooperative, appropriate mood & affect. Course 2 Vital Signs: Vital signs: Vital Signs Temperature 98 F 01/13/24 20:57 Pulse Rate 97 01/13/24 20:57 Respiratory Rate 20 H 01/13/24 20:57 Blood Pressure 144/92 01/13/24 20:57 Pulse Oximetry 97 01/13/24 20:57 MDM - Chest Pain Medical Decision Making Differential diagnosis for patient with chest pain includes but is not limited to and based on the above HPI, review of systems and physical exam: Pneumonia. unstable angina. angina. Acute coronary syndrome / MD. Pulmonary embolism. Costochondritis / musculoskeletal. Pleurisy. Pericarditis. Esophageal spasm. Pancreatis. Cholecystitis. Orders placed to evaluate differential diagnosis based on the above differential, HPI and physical exam EKG: Time 2058. Rate 86. Normal sinus rhythm, No ST-T changes, no ectopy, normal KS & QRS intervals, This was reviewed and interpreted by myself the ER physician at 2101 Chest x-ray: No acute process. No infiltrate. No pneumothorax. This was reviewed and interpreted by myself the ER physician. Lab Review: Laboratory results were reviewed and interpreted by myself the emergency room physician. Lab work is unremarkable. No leukocytosis. No elevation in troponin. I reviewed the patient's medical record. Reexamination: Patient remained stable. No increased work of breathing. No altered mental status. No focal motor deficits. Assessment and plan: Noncardiac chest pain - Discharged home - Discussed plan with patient. Answered any questions. - Evaluation and treatment of this problem were appropriate in the emergency setting. Lab Data 01/13/24 21:04 01/13/24 21:04 Laboratory Results WBC 9.80 10^3/uL (3.29-11.43) 01/13/24 21:04 RBC 4.98 10^6/uL (3.85-5.65) 01/13/24 21:04 Hgb 14.60 g/dL (11.27-16.99) 01/13/24 21:04 Hct 44.4 % (37-53) 01/13/24 21:04 MCV 89.2 fl (82-101) 01/13/24 21:04 MCH 29.3 pg (27-33) 01/13/24 21:04 MCHC 32.9 g/dL (30-55) 01/13/24 21:04 RDW 12.5 % (12.1-15.1) 01/13/24 21:04 Plt Count 293 10^3/cmm (157-399) 01/13/24 21:04 MPV 11.3 fL (7.4-10.4) H 01/13/24 21:04 Neut % (Auto) 64.8 % 01/13/24 21:04 Lymph % (Auto) 25.1 % 01/13/24 21:04 [place] % (Auto) 6.7 % 01/13/24 21:04 Eos % (Auto) 2.8 % 01/13/24 21:04 Baso % (Auto) 0.3 % 01/13/24 21:04 Neut # (Auto) 6.35 10^3/uL (1.8-7.7) 01/13/24 21:04 Lymph # (Auto) 2.5 10^3/uL (0.8-4.8) 01/13/24 21:04 [place] # (Auto) 0.7 10^3/uL (0.2-0.9) 01/13/24 21:04 Eos # (Auto) 0.3 10^3/uL (0.0-0.8) 01/13/24 21:04 Baso # (Auto) 0.0 10^3/uL (0.0-0.1) 01/13/24 21:04 Nucleated RBC % (auto) 0 % 01/13/24 21:04 Nucleated RBCs # 0.0 /100WBC 01/13/24 21:04 Sodium 141 mmol/L (136-145) 01/13/24 21:04 Potassium 4.2 mmol/L (3.5-5.1) 01/13/24 21:04 Chloride 104 mmol/L (98-107) 01/13/24 21:04 Carbon Dioxide 26 mmol/L (22-29) 01/13/24 21:04 Anion Gap 15.2 (5-19) 01/13/24 21:04 BUN 13 mg/dL (6-20) 01/13/24 21:04 Creatinine 0.9 mg/dL (0.7-1.2) 01/13/24 21:04 GFR Calculation 99.1 mL/min (90-130) 01/13/24 21:04 Glucose 122 mg/dL (65-115) H 01/13/24 21:04 Calculated Osmolality 293 mOsm/kg (285-295) 01/13/24 21:04 Calcium 9.3 mg/dL (8.5-10.5) 01/13/24 21:04 Total Bilirubin 0.3 mg/dL (0.15-1.2) 01/13/24 21:04 AST 24 U/L (0-40) 01/13/24 21:04 ALT 31 U/L (0-41) 01/13/24 21:04 Alkaline Phosphatase 67 U/L (40-130) 01/13/24 21:04 Troponin T Baseline 7 ng/L (0-15) 01/13/24 21:04 Total Protein 6.7 g/dL (6.6-8.7) 01/13/24 21:04 Albumin 4.2 g/dL (3.5-5.2) 01/13/24 21:04 Globulin 2.5 g/dL (1.3-4.6) 01/13/24 21:04 XR interpretation done by ED provider, pending radiology final review Discharge Plan Discharge Patient Disposition: Home Clinical Impression: Non-cardiac chest pain Condition: Stable Prescriptions: No Action lisinopril 20 mg tablet 20 mg PO DAILY Qty: 30 5RF hydrochlorothiazide 25 mg tablet 25 mg PO DAILY Qty: 30 5RF albuterol sulfate 90 mcg/actuation HFA aerosol inhaler 2 puff inhalation Q6H PRN (Reason: shortness of breath or wheezing) Qty: 8.5 3RF montelukast 10 mg tablet 10 mg PO DAILY Qty: 30 5RF clindamycin HCl 300 mg capsule 300 mg PO TID Qty: 21 0RF ciprofloxacin HCl 500 mg tablet 500 mg PO BID Qty: 14 0RF ibuprofen 200 mg Tablet 200 mg PO Q6H PRN (Reason: Pain) Excedrin Migraine 250-250-65 mg Tablet 1 tab PO Q6H PRN (Reason: Migraine Headache) mupirocin 2 % ointment 1 applic topical BID Qty: 15 0RF ibuprofen 600 mg tablet 600 mg PO Q6H PRN (Reason: pain) Qty: 60 0RF acetaminophen 650 mg tablet extended release 650 mg PO Q8H PRN (Reason: pain) Qty: 60 0RF Discharge Orders: Discharge ED (Routine); Ordered 01/13/24 Ordered By: Mahi Paul Discharge Diet: Usual diet Discharge Activity: Increase activity as tolerated Patient Instructions: Noncardiac Chest Pain (ED) Activity Restrictions/Additional Instructions: Thank you for choosing [facility] for your healthcare needs today. Please realize this is an emergency room and that we are providing you with a medical screening exam and this may not be complete and all inclusive of all the testing and or work up that you may need to determine your ailment or severity of your illness. You have been screened and evaluated and felt safe for discharge. Health conditions do change or evolve sometimes and as such it is important that you follow up with your Primary Doctor to be re checked, 3-5 days is a general good time frame for follow up. You are always welcome to return to the ED for re assessment if your symptoms are worsening or you have new concerns Coding Level of Care Code ED Custodial Worker for Burt Brenner
[2024-01-13 22:04] VITALS: BP 125/74; PULSE 82; O2SAT 94
[2024-01-14 00:08] VITALS: BP 135/77; PULSE 76; O2SAT 96
== END 2024-01-13 22:11 | disposition home or self-care (01) ==
PROVIDERS: Emergency Provider Emergency Medicine
DX: R07.89 Other chest pain (principal); I10 Essential (primary) hypertension; F17.210 Nicotine dependence, cigarettes, uncomplicated; F17.220 Nicotine dependence, chewing tobacco, uncomplicated
CPT/HCPCS: 71045; 80053; 84484; 85025; 93005; 99285

== ENCOUNTER 2024-01-22 20:38 | Emergency (ER) | payer MEDICAID, SELFPAY ==
[2024-01-22 20:40] VITALS: BP 122/84; PULSE 90; RESP 18; O2SAT 95; BMI 32.5
--- NOTE | 2024-01-22 20:41 | ECG_ITS ---
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 Measurements Intervals Eddy Rate: 96 P: 48 CA: 155 QRS: -22 QRSD: 107 T: 48 QT: 343 QTc: 434 Interpretive Statements SINUS RHYTHM BORDERLINE LEFT AXIS DEVIATION [QRS AXIS < -20] LOW QRS VOLTAGE IN PRECORDIAL LEADS [QRS DEFLECTION < 1.0 mV IN CHEST LEADS] PATTERN CONSISTENT WITH PULMONARY DISEASE VOLTAGE CRITERIA FOR LVH [MEETS CRITERIA IN ONE OF: R(aVL), S(V1), R(V5), R(V5/V6)+S(V1)] Compared to ECG 01/13/2024 20:59:21 No significant changes Electronically Signed On 01-23-2024 19:32:57 CDT by Christianne Carl M.D. [id number]
--- NOTE | 2024-01-22 20:41 | XRR_ITS ---
PROCEDURE INFORMATION: Exam: XR Chest Exam date and time: 01/22/2024 8:43 PM Age: 28 years old Clinical indication: Chest pressure; Patient HX: Chest pain TECHNIQUE: Imaging protocol: Radiologic exam of the chest. Views: 1 view. COMPARISON: CR (CHEST, ) 01/13/2024 9:30 PM FINDINGS: Lungs: Bibasilar atelectasis. Pleural spaces: Unremarkable. No pleural effusion. No pneumothorax. Heart/Mediastinum: Unremarkable. No cardiomegaly. Bones/joints: Unremarkable. XR/XR chest 1V portable [id number] IMPRESSION: Bibasilar atelectasis.
[2024-01-22 21:06] VITALS: BP 127/81; PULSE 88; RESP 18; O2SAT 97
[2024-01-22 21:09] LABS: Basophils % 0.4 %; Eosinophils # 0.5 10^3/uL (0.0-0.8); Eosinophils % 5.1 %; Hematocrit 41.7 % (37-53); Lymphocytes # 1.9 10^3/uL (0.8-4.8); Lymphocytes % 19.5 %; Mean Corpuscular HGB Conc 32.9 g/dL (30-55); Mean Corpuscular Hemoglobin 29.8 pg (27-33); Mean Corpuscular Volume 90.7 fl (82-101); Mean Platelet Volume 11.2 fL (7.4-10.4); Monocytes # 0.6 10^3/uL (0.2-0.9); Monocytes % 6.5 %; Neutrophils # 6.59 10^3/uL (1.8-7.7); Neutrophils % 68.2 %; Nucleated Red Blood Cells % 0 %; Platelet Count 260 10^3/cmm (157-399); Red Cell Distribution Width 12.9 % (12.1-15.1); White Blood Count 9.67 10^3/uL (3.29-11.43)
[2024-01-22 21:15] VITALS: BP 127/81; PULSE 93; RESP 16; O2SAT 95
[2024-01-22 21:18] LABS: D Dimer 0.36 ug/mLFEU (0-0.59)
[2024-01-22 21:22] LABS: Troponin(5th) Baseline 10 ng/L (0-15)
[2024-01-22 21:24] LABS: Alanine Aminotransferase 45 U/L (0-41); Albumin Level 4.2 g/dL (3.5-5.2); Alkaline Phosphatase 57 U/L (40-130); Anion Gap 13.1 (5-19); Aspartate Amino Transferase 33 U/L (0-40); Blood Urea Nitrogen 14 mg/dL (6-20); Calcium 8.9 mg/dL (8.5-10.5); Carbon Dioxide 26 mmol/L (22-29); Chloride 105 mmol/L (98-107); Creatinine Clr Calc Pharmacy 157.2389; Globulin 2.2 g/dL (1.3-4.6); Glomerular Filtration Rate 113.5 mL/min (90-130); Glucose 114 mg/dL (65-115); Osmolality Calculated 291 mOsm/kg (285-295); Potassium 4.1 mmol/L (3.5-5.1); Sodium 140 mmol/L (136-145); Total Bilirubin 0.3 mg/dL (0.15-1.2); Total Protein 6.4 g/dL (6.6-8.7)
--- NOTE | 2024-01-22 21:31 | ED_ITS ---
HPI - Chest Pain 2 General: Chief Complaint: Chest Pain Stated Complaint: CP Time Seen by Provider: 01/22/24 20:39 Source: patient and police Mode of arrival: ambulatory Limitations: no limitations History of Present Illness: Patient is a 28-year-old male who presents to ED today from senior living for evaluation of chest pain. Patient states he has been having chest pain for at least 2 weeks. He was seen here in the emergency department on 01/12 for similar symptoms. ED workup at that time was benign. He feels like he has pain with deep inspiration. He reports a chronic smoker's cough. He is not having any hemoptysis. There is no radicular discomfort to his chest pain. He denies any significant shortness of breath or difficulty breathing. No fevers. MD complaint: chest pain Onset (ago): week(s) Timing of current episode: episodic Prior episodes: Yes Onset: during rest Pain location: substernal Pain radiation: none Severity: moderate Relieving factors: nothing Exacerbating factors: inspiration Associated symptoms: Reports no associated symptoms; Deny abdominal pain, dyspnea, fever(s), nausea, palpitations, syncope or vomiting Treatment prior to arrival: none Risk Factors: Coronary artery disease risk factors: smoking history Thoracic aortic dissection risk factors: none Related Data Home Medications Medication Instructions Recorded Confirmed [id number] 250 1 tab PO Q6H PRN Migraine Headache 04/15/20 04/19/23 mg-250 mg-65 mg tablet (Excedrin Migraine) ibuprofen 200 mg tablet 200 mg PO Q6H PRN Pain 04/15/20 04/19/23 Previous Rx's Medication Instructions Recorded albuterol sulfate 90 mcg/actuation 2 puff inhalation Q6H PRN 10/02/22 aerosol inhaler shortness of breath or wheezing #8.5 grams hydrochlorothiazide 25 mg tablet 25 mg PO DAILY blood pressure #30 10/02/22 tabs lisinopril 20 mg tablet 20 mg PO DAILY blood pressure #30 10/02/22 tabs montelukast 10 mg tablet 10 mg PO DAILY asthma #30 tabs 10/02/22 mupirocin 2 % topical ointment 1 applic topical BID #15 grams 04/10/23 ciprofloxacin HCl 500 mg tablet 500 mg PO BID #14 tabs 04/12/23 clindamycin HCl 300 mg capsule 300 mg PO TID #21 caps 04/12/23 acetaminophen 650 mg 650 mg PO Q8H PRN pain #60 tabs 01/09/24 tablet,extended release ibuprofen 600 mg tablet 600 mg PO Q6H PRN pain #60 tabs 01/09/24 albuterol sulfate 90 mcg/actuation 2 inh inhalation Q4H PRN shortness 01/13/24 aerosol inhaler of breath or wheezing #6.7 grams Allergies Allergy/AdvReac Type Severity Reaction Status Date / Time haloperidol Allergy ALGY-Anaphy Verified 04/19/23 15:24 laxis Review of Systems 2 Const: Denies: fever(s), chills, body aches, fatigue or malaise Card: Reports: chest pain; Denies: palpitations, irregular heart rhythm, edema, swelling of feet/ankles, lightheadedness, syncope, pre-syncope, dyspnea on exertion, orthopnea, leg pain with exertion or acrocyanosis Resp: Reports: productive cough (chronic cough) and pain on inspiration; Denies: dyspnea, wheezing or hemoptysis GI: Denies: abdominal pain, nausea, vomiting or diarrhea : Denies: flank pain Musc: Denies: neck pain or back pain Skin/Breast: Denies: rash Neuro: Denies: headache(s) or dizziness PFSH ED 2 PFSH: Medical History Psychiatric care Asthma HTN (hypertension) with goal to be determined ADD (attention deficit disorder) Bipolar 1 disorder Post traumatic stress disorder (PTSD) Dental caries Surgical History History of hernia surgery Family History Father Additional heart attack (anterolateral wall) Stroke Mother COPD (chronic obstructive pulmonary disease) Social History Smoking and tobacco/nicotine status: current every day tobacco/nicotine user cigarettes and smokeless tobacco Smokeless tobacco user: chewing tobacco Quit status (tobacco/nicotine): not considering quitting Second hand smoke exposure: No Alcohol intake: former Substance/Drug Use: former Physical Exam 2 Const: COMMON NORMALS: no acute distress, average body habitus, patient oriented x3, no limitations, healthy appearing, alert and well nourished Eye: COMMON NORMALS: no scleral icterus Chest: COMMONS NORMALS: normal inspection of the chest OTHER: TTP anterior chest wall; palpation reproduces patient's pain Resp: COMMON NORMALS: normal respiratory effort and clear to auscultation bilaterally AUSCULTATION: clear to auscultation bilaterally Cardio: COMMON NORMALS: regular rate and regular rhythm RATE: regular rate RHYTHM: regular rhythm GI: COMMON NORMALS: Normal to inspection, nondistended, normoactive bowel sounds present, Soft to palpation, non-tender, No hepatosplenomegaly present and no masses PALPATION: Yes Soft to palpation and Yes No hepatosplenomegaly present : COMMON NORMALS: Yes no CVA tenderness BLADDER/KIDNEY EXAM: Yes no CVA tenderness Back/Pelvis: COMMON NORMALS: no CVA tenderness and thoracic and lumbar spine normal to inspection Extremity: GENERAL: Yes normal exam except as noted Neuro: COMMON NORMALS: patient oriented x3, moves all extremities, no focal motor deficits, no sensory deficits noted and gait normal S ENSORIUM/ORIENTATION: Yes alert Skin: COMMON NORMALS: no rashes or lesions noted GENERAL SKIN EXAM: no rashes or lesions noted Course 2 Vital Signs: Vital signs: Vital Signs Pulse Rate 85 01/22/24 21:32 Respiratory Rate 12 01/22/24 21:32 Blood Pressure 119/77 01/22/24 21:32 Pulse Oximetry 99 01/22/24 21:32 MDM - Chest Pain Medical Decision Making Patient clinically appears in no acute distress. His vital signs are stable. Chest pain was reproducible with palpation. His blood work overall is unremarkable. His baseline troponin is normal. D-dimer is normal. CXR personal interpretation is unremarkable. EKG is nonischemic. This time patient will be allowed discharge back to senior living. Recommend follow-up with primary care in the next 1 to 2 weeks for further evaluation. Return to ED precautions given. Medical Records I reviewed the patient's medical records. Lab Data I reviewed the patient's lab results. 01/22/24 20:32 01/22/24 20:32 Laboratory Results WBC 9.67 10^3/uL (3.29-11.43) 01/22/24 20: RBC 4.60 10^6/uL (3.85-5.65) 01/22/24 20:32 Hgb 13.70 g/dL (11.27-16.99) 01/22/24 20: Hct 41.7 % (37-53) 01/22/24 20: MCV 90.7 fl (82-101) 01/22/24 20: MCH 29.8 pg (27-33) 01/22/24 20: MCHC 32.9 g/dL (30-55) 01/22/24 20: RDW 12.9 % (12.1-15.1) 01/22/24 20: Plt Count 260 10^3/cmm (157-399) 01/22/24 20: MPV 11.2 fL (7.4-10.4) H 01/22/24 20: Neut % (Auto) 68.2 % 01/22/24 20: Lymph % (Auto) 19.5 % 01/22/24: [place] % (Auto) 6.5 % 01/22/24: Eos % (Auto) 5.1 % 01/22/24: Baso % (Auto) 0.4 % 01/22/24: Neut # (Auto) 6.59 10^3/uL (1.8-7.7) 01/22/24: Lymph # (Auto) 1.9 10^3/uL (0.8-4.8) 01/22/24: [place] # (Auto) 0.6 10^3/uL (0.2-0.9) 01/22/24: Eos # (Auto) 0.5 10^3/uL (0.0-0.8) 01/22/24: Baso # (Auto) 0.0 10^3/uL (0.0-0.1) 01/22/24: Nucleated RBC % (auto) 0 % 01/22/24: Nucleated RBCs # 0.0 /100WBC 01/22/24 20: D-Dimer 0.36 ug/mLFEU (0-0.59) 01/22/24 20:32 Sodium 140 mmol/L (136-145) 01/22/24: Potassium 4.1 mmol/L (3.5-5.1) 01/22/24 20:32 Chloride 105 mmol/L (98-107) 01/22/24 20:32 Carbon Dioxide 26 mmol/L (22-29) 01/22/24 20:32 Anion Gap 13.1 (5-19) 01/22/24 20:32 BUN 14 mg/dL (6-20) 01/22/24 20:32 Creatinine 0.8 mg/dL (0.7-1.2) 01/22/24 20:32 GFR Calculation 113.5 mL/min (90-130) 01/22/24 20:32 Glucose 114 mg/dL (65-115) 01/22/24 20:32 Calculated Osmolality 291 mOsm/kg (285-295) 01/22/24 20:32 Calcium 8.9 mg/dL (8.5-10.5) 01/22/24 20:32 Total Bilirubin 0.3 mg/dL (0.15-1.2) 01/22/24 20:32 AST 33 U/L (0-40) 01/22/24 20:32 ALT 45 U/L (0-41) H 01/22/24 20:32 Alkaline Phosphatase 57 U/L (40-130) 01/22/24 20:32 Troponin T Baseline 10 ng/L (0-15) 01/22/24 20:32 Total Protein 6.4 g/dL (6.6-8.7) L 01/22/24 20:32 Albumin 4.2 g/dL (3.5-5.2) 01/22/24 20:32 Globulin 2.2 g/dL (1.3-4.6) 01/22/24 20:32 XR interpretation done by ED provider, pending radiology final review Discharge Plan Discharge Patient Disposition: Home Clinical Impression: Non-cardiac chest pain Condition: Stable Prescriptions: No Action lisinopril 20 mg tablet 20 mg PO DAILY Qty: 30 5RF hydrochlorothiazide 25 mg tablet 25 mg PO DAILY Qty: 30 5RF albuterol sulfate 90 mcg/actuation HFA aerosol inhaler 2 puff inhalation Q6H PRN (Reason: shortness of breath or wheezing) Qty: 8.5 3RF montelukast 10 mg tablet 10 mg PO DAILY Qty: 30 5RF clindamycin HCl 300 mg capsule 300 mg PO TID Qty: 21 0RF ciprofloxacin HCl 500 mg tablet 500 mg PO BID Qty: 14 0RF ibuprofen 200 mg Tablet 200 mg PO Q6H PRN (Reason: Pain) Excedrin Migraine 250-250-65 mg Tablet 1 tab PO Q6H PRN (Reason: Migraine Headache) mupirocin 2 % ointment 1 applic topical BID Qty: 15 0RF ibuprofen 600 mg tablet 600 mg PO Q6H PRN (Reason: pain) Qty: 60 0RF acetaminophen 650 mg tablet extended release 650 mg PO Q8H PRN (Reason: pain) Qty: 60 0RF albuterol sulfate 90 mcg/actuation HFA aerosol inhaler 2 inh inhalation Q4H PRN (Reason: shortness of breath or wheezing) Qty: 6.7 0RF Rx Instructions: Please provide patient with a spacer Discharge Orders: Discharge ED (Routine); Ordered 01/22/24 Ordered By: Rebecca Snell Activity Restrictions/Additional Instructions: Your emergency workup once again was unremarkable. You may attempt to try Tylenol and/or Motrin for discomfort of your chest pain. Recommend following up with primary care provider in the next 1 to 2 weeks for further evaluation. Coding Level of Care Code ED Testing Analyst for Burt Brenner
[2024-01-22 21:32] VITALS: BP 119/77; PULSE 85; RESP 12; O2SAT 99
[2024-01-22 22:34] VITALS: BP 143/75; PULSE 81; O2SAT 98
== END 2024-01-22 22:17 | disposition home or self-care (01) ==
PROVIDERS: Emergency Provider Physician Assistant
DX: R07.89 Other chest pain (principal); F17.210 Nicotine dependence, cigarettes, uncomplicated; F17.220 Nicotine dependence, chewing tobacco, uncomplicated; I10 Essential (primary) hypertension
CPT/HCPCS: 36415; 71045; 80053; 84484; 85025; 85378; 93005; 99285

== ENCOUNTER 2024-01-25 23:27 | Emergency (ER) | payer MEDICAID, SELFPAY ==
[2024-01-25 23:40] VITALS: BP 133/90; PULSE 81; RESP 16; TEMP 36.8; O2SAT 98
--- NOTE | 2024-01-25 23:41 | ED_ITS ---
HPI - SOB/Dyspnea General: Chief Complaint: Shortness of Breath/Dyspnea Stated Complaint: SOB Time Seen by Provider: 01/25/24 23:29 Source: patient and other (long term staff) Mode of arrival: wheelchair Limitations: no limitations History of Present Illness: HPI Narrative: Patient is a 28-year-old male who presents to ED today yet again from long term for complaints of an episode of shortness of breath. This makes patient's fifth visit just this month from long term for various complaints usually chest pains. He has had multiple negative workups. Today, he states prior to arrival, he had a asthma attack . He states he was diagnosed with asthma several years ago. He states on one of his previous ED visits they had prescribed him an albuterol inhaler but the long term staff lost it. Patient states he was able to overcome his asthma attack with meditative breathing. Upon arrival to the emergency department he is asymptomatic. MD elicited complaint: asthma attack Pertinent past history: asthma Onset (ago): hour(s) Timing: now resolved Severity: moderate Known history of: asthma Associated symptoms: Reports no associated symptoms; Deny abdominal pain, chest pain, dizziness, extremity pain, fever(s), hemoptysis, lightheadedness, palpitations or syncope Treatment prior to arrival: none Related Data Home Medications Medication Instructions Recorded Confirmed iojxrkx-rzyecrtfszqpf-phursicr 250 1 tab PO Q6H PRN Migraine Headache 04/15/20 04/19/23 mg-250 mg-65 mg tablet (Excedrin Migraine) ibuprofen 200 mg tablet 200 mg PO Q6H PRN Pain 04/15/20 04/19/23 Previous Rx's Medication Instructions Recorded albuterol sulfate 90 mcg/actuation 2 puff inhalation Q6H PRN 10/02/22 aerosol inhaler shortness of breath or wheezing #8.5 grams hydrochlorothiazide 25 mg tablet 25 mg PO DAILY blood pressure #30 10/02/22 tabs lisinopril 20 mg tablet 20 mg PO DAILY blood pressure #30 10/02/22 tabs montelukast 10 mg tablet 10 mg PO DAILY asthma #30 tabs 10/02/22 mupirocin 2 % topical ointment 1 applic topical BID #15 grams 04/10/23 ciprofloxacin HCl 500 mg tablet 500 mg PO BID #14 tabs 04/12/23 clindamycin HCl 300 mg capsule 300 mg PO TID #21 caps 12/11/23 acetaminophen 650 mg 650 mg PO Q8H PRN pain #60 tabs 01/09/24 tablet,extended release ibuprofen 600 mg tablet 600 mg PO Q6H PRN pain #60 tabs 01/09/24 albuterol sulfate 90 mcg/actuation 2 inh inhalation Q4H PRN shortness 01/13/24 aerosol inhaler of breath or wheezing #6.7 grams Allergies Allergy/AdvReac Type Severity Reaction Status Date / Time haloperidol Allergy ALGY-Anaphy Verified 04/19/23 15:24 laxis Review of Systems Const: Denies: fever(s), chills, body aches, fatigue or malaise Card: Denies: chest pain, palpitations, irregular heart rhythm, edema, swelling of feet/ankles, lightheadedness, syncope or pre-syncope Resp: Reports: dyspnea (now resolved); Denies: pain on inspiration or hemoptysis GI: Denies: abdominal pain Musc: Denies: extremity pain or extremity swelling Neuro: Denies: headache(s) or dizziness PFS ED PFSH: Medical History Psychiatric care Asthma HTN (hypertension) with goal to be determined ADD (attention deficit disorder) Bipolar 1 disorder Post traumatic stress disorder (PTSD) Dental caries Surgical History History of hernia surgery Family History Father Additional heart attack (anterolateral wall) Stroke Mother COPD (chronic obstructive pulmonary disease) Social History Smoking and tobacco/nicotine status: current every day tobacco/nicotine user cigarettes and smokeless tobacco Smokeless tobacco user: chewing tobacco Quit status (tobacco/nicotine): not considering quitting Second hand smoke exposure: No Alcohol intake: former Substance/Drug Use: former Physical Exam Const: COMMON NORMALS: no acute distress, patient oriented x3, no limitations, alert and well nourished GENERAL APPEARANCE: cooperative Chest: COMMONS NORMALS: normal inspection of the chest and normal palpation of entire chest wall Resp: COMMON NORMALS: normal respiratory effort and clear to auscultation bilaterally AUSCULTATION: clear to auscultation bilaterally Cardio: COMMON NORMALS: regular rate and regular rhythm RATE: regular rate RHYTHM: regular rhythm Extremity: COMMON NORMALS: no clubbing, cyanosis or edema, no calf tenderness and no pedal edema Neuro: COMMON NORMALS: patient oriented x3 SENSORIUM/ORIENTATION: Yes alert Course Vital Signs: Vital signs: Vital Signs Temperature 98.2 F 01/25/24 23:40 Pulse Rate 81 01/25/24 23:40 Respiratory Rate 16 01/25/24 23:40 Blood Pressure 133/90 01/25/24 23:40 Pulse Oximetry 98 01/25/24 23:40 MDM - SOB/Dyspnea Medical Decision Making Patient has no symptoms at time of presentation to the emergency department. He clinically appears in absolutely no acute distress. His vital signs are stable. His lung sounds are normal. He will be provided an albuterol inhaler at time of discharge that he can use as needed. Return to ED precautions given. Differential Diagnosis Likely acute exacerbation of chronic obstructive airways disease and asthma with exacerbation Medical Records I reviewed the patient's medical records. No radiology studies performed this visit Discharge Plan Discharge Patient Disposition: Home Clinical Impression: Asthma Qualifiers: Asthma severity: unspecified severity Asthma persistence: unspecified Asthma complication type: uncomplicated Qualified Code(s): J45.909 - Unspecified asthma, uncomplicated Condition: Stable Prescriptions: No Action lisinopril 20 mg tablet 20 mg PO DAILY Qty: 30 5RF hydrochlorothiazide 25 mg tablet 25 mg PO DAILY Qty: 30 5RF albuterol sulfate 90 mcg/actuation HFA aerosol inhaler 2 puff inhalation Q6H PRN (Reason: shortness of breath or wheezing) Qty: 8.5 3RF montelukast 10 mg tablet 10 mg PO DAILY Qty: 30 5RF clindamycin HCl 300 mg capsule 300 mg PO TID Qty: 21 0RF ciprofloxacin HCl 500 mg tablet 500 mg PO BID Qty: 14 0RF ibuprofen 200 mg Tablet 200 mg PO Q6H PRN (Reason: Pain) Excedrin Migraine 250-250-65 mg Tablet 1 tab PO Q6H PRN (Reason: Migraine Headache) mupirocin 2 % ointment 1 applic topical BID Qty: 15 0RF ibuprofen 600 mg tablet 600 mg PO Q6H PRN (Reason: pain) Qty: 60 0RF acetaminophen 650 mg tablet extended release 650 mg PO Q8H PRN (Reason: pain) Qty: 60 0RF albuterol sulfate 90 mcg/actuation HFA aerosol inhaler 2 inh inhalation Q4H PRN (Reason: shortness of breath or wheezing) Qty: 6.7 0RF Rx Instructions: Please provide patient with a spacer Discharge Orders: Discharge ED (Routine); Ordered 01/25/24 Ordered By: Rebecca Snell Activity Restrictions/Additional Instructions: He can use the inhaler that was given to him today as directed: Use 1 to 2 puffs every 4-6 hours as needed for shortness of breath or wheezing. 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
[2024-01-25 23:51] VITALS: BP 115/81; PULSE 82; RESP 16; O2SAT 98
[2024-01-25] MEDS: albuterol 8 gm MDI 2 PUFF INHALATION (23:53)
== END 2024-01-25 23:55 | disposition home or self-care (01) ==
PROVIDERS: Emergency Provider Physician Assistant
DX: J45.909 Unspecified asthma, uncomplicated (principal); I10 Essential (primary) hypertension; F17.210 Nicotine dependence, cigarettes, uncomplicated; F17.220 Nicotine dependence, chewing tobacco, uncomplicated
CPT/HCPCS: 99283; J3535

== ENCOUNTER 2024-02-01 16:57 | Emergency (ER) | payer MEDICAID, SELFPAY ==
[2024-02-01 17:00] VITALS: BP 135/80; PULSE 104; RESP 18; TEMP 36.8; O2SAT 98; BMI 34.0
--- NOTE | 2024-02-01 17:00 | ECG_ITS ---
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 Measurements Intervals [place] Rate: 79 P: 55 ME: 176 QRS: -19 QRSD: 113 T: 29 QT: 378 QTc: 435 Interpretive Statements SINUS RHYTHM LOW QRS VOLTAGE IN PRECORDIAL LEADS [QRS DEFLECTION < 1.0 mV IN CHEST LEADS] PATTERN CONSISTENT WITH PULMONARY DISEASE INCOMPLETE RIGHT BUNDLE BRANCH BLOCK [90+ ms QRS DURATION, TERMINAL R IN V1/V2, 40+ ms S IN I/aVL/V4/V5/V6] MINIMAL VOLTAGE CRITERIA FOR LVH, CONSIDER NORMAL VARIANT [MEETS CRITERIA IN ONE OF: R(aVL), S(V1), R(V5), R(V5/V6)+S(V1)] Compared to ECG 01/22/2024 20:37:51 Incomplete right bundle-branch block now present Electronically Signed On 02-03-2024 18:19:43 CDT by Duc Adler M.D. [id number] f
[2024-02-01 17:09] VITALS: BP 145/84; PULSE 99; RESP 18; O2SAT 98
--- NOTE | 2024-02-01 17:15 | W.ED.DIZZY ---
HPI - Dizziness General: Chief Complaint: Dizziness Stated Complaint: dizzy, vertigo, light headed Time Seen by Provider: 02/01/24 17:05 Source: patient and other (long term staff) Mode of arrival: EMS Limitations: no limitations History of Present Illness: HPI Narrative: Patient is a 28-year-old male presenting to the emergency department by ambulance and accompanied by long term staff due to dizziness onset about 10 minutes prior to arrival. Per long term staff, patient had been snorting copious amounts of crushed up nicotine all day, and about 10 minutes prior to arrival had sudden onset of dizziness and lightheadedness, stating that he was able to get himself to the floor until it subsided. At this time he is only complaining of a diffuse headache, and is stating he wants to leave for a visit with his mom at 1800. He has a history of asthma and uses an inhaler, however otherwise states he just takes ibuprofen and Tylenol for aches and pains. He is not reporting any neurological symptoms at this time, no visual changes, no chest pain or shortness of breath, and no nausea/vomiting. Vitals stable on arrival. MD elicited complaint: dizziness and lightheadedness Onset (ago): minute(s) Timing: sudden onset Severity: moderate Description: room spinning and lightheadedness Context: other (Snorting nicotine all day at long term) Relieving factors: remaining still and rest Associated symptoms: Reports headache(s); Denies chest pain, chills, nausea, palpitations or vomiting Associated neuro symptoms: Deny numbness in extremities Related Data Home Medications Medication Instructions Recorded Confirmed elcmumo-bnsfagishkbcy-eugxwufa 250 1 tab PO Q6H PRN Migraine Headache 04/15/20 04/19/23 mg-250 mg-65 mg tablet (Excedrin Migraine) ibuprofen 200 mg tablet 200 mg PO Q6H PRN Pain 04/15/20 04/19/23 Previous Rx's Medication Instructions Recorded albuterol sulfate 90 mcg/actuation 2 puff inhalation Q6H PRN 10/02/22 aerosol inhaler shortness of breath or wheezing #8.5 grams hydrochlorothiazide 25 mg tablet 25 mg PO DAILY blood pressure #30 10/02/22 tabs lisinopril 20 mg tablet 20 mg PO DAILY blood pressure #30 10/02/22 tabs montelukast 10 mg tablet 10 mg PO DAILY asthma #30 tabs 10/02/22 mupirocin 2 % topical ointment 1 applic topical BID #15 grams 04/10/23 ciprofloxacin HCl 500 mg tablet 500 mg PO BID #14 tabs 04/12/23 clindamycin HCl 300 mg capsule 300 mg PO TID #21 caps 04/12/23 acetaminophen 650 mg 650 mg PO Q8H PRN pain #60 tabs 01/09/24 tablet,extended release ibuprofen 600 mg tablet 600 mg PO Q6H PRN pain #60 tabs 01/09/24 albuterol sulfate 90 mcg/actuation 2 inh inhalation Q4H PRN shortness 01/13/24 aerosol inhaler of breath or wheezing #6.7 grams Allergies Allergy/AdvReac Type Severity Reaction Status Date / Time haloperidol Allergy ALGY-Anaphy Verified 04/19/23 15:24 laxis Review of Systems General: Reports: 10 or more systems reviewed and unremarkable except in HPI and below Const: Denies: fever(s), chills or fatigue Eyes: Denies: change in vision ENMT: Denies: throat pain, ear or mastoid pain or nasal discharge Card: Reports: lightheadedness; Denies: chest pain, palpitations or swelling of feet/ankles Resp: Denies: dyspnea, productive cough or wheezing GI: Denies: abdominal pain, nausea, vomiting, diarrhea or constipation : Denies: flank pain, difficulty urinating, dysuria or urinary frequency Musc: Denies: neck pain, back pain or joint pain Skin/Breast: Denies: rash Neuro: Reports: headache(s), dizziness and vertigo; Denies: numbness in extremities or weakness in extremities PFSH ED PFSH: Medical History Psychiatric care Asthma HTN (hypertension) with goal to be determined ADD (attention deficit disorder) Bipolar 1 disorder Post traumatic stress disorder (PTSD) Dental caries Surgical History History of hernia surgery Family History Father Additional heart attack (anterolateral wall) Stroke Mother COPD (chronic obstructive pulmonary disease) Social History Smoking and tobacco/nicotine status: current every day tobacco/nicotine user cigarettes and smokeless tobacco Smokeless tobacco user: chewing tobacco Quit status (tobacco/nicotine): not considering quitting Second hand smoke exposure: No Alcohol intake: former Substance/Drug Use: former Physical Exam Const: COMMON NORMALS: no acute distress, patient oriented x3 and no limitations GENERAL APPEARANCE: cooperative, comfortable and well developed ORIENTATION/CONSCIOUSNESS: Yes awake, Yes oriented to person, Yes oriented to place and Yes oriented to time HENMT: COMMON NORMALS: normocephalic, atraumatic and hearing grossly normal bilaterally HEAD & SCALP: normocephalic and atraumatic Eye: COMMON NORMALS: Equal, round and reactive pupils present, EOMs intact bilaterally and conjunctivae normal CONJUNCTIVA: Yes conjunctivae normal PUPIL: Yes Equal, round and reactive pupils present Neck/C-Spine: COMMON NORMALS: full ROM, supple and no JVD Resp: COMMON NORMALS: normal respiratory effort, No retractions, No use of accessory muscles and clear to auscultation bilaterally AUSCULTATION: clear to auscultation bilaterally Cardio: COMMON NORMALS: no JVD, regular rate, regular rhythm, No clicks present (Cardio), No murmurs present (Cardio) and No rub (Cardio) RATE: regular rate RHYTHM: regular rhythm GI: COMMON NORMALS: Normal to inspection, nondistended, normoactive bowel sounds present, Soft to palpation and non-tender AUSCULTATION: Yes normoactive bowel sounds PALPATION: Yes Soft to palpation RECTAL EXAM: Yes deferred Extremity: COMMON NORMALS: normal to inspection, full ROM and capillary refill normal Neuro: COMMON NORMALS: patient oriented x3, CN's II-XII intact bilaterally, moves all extremities, no focal motor deficits and no sensory deficits noted SENSORIUM/ORIENTATION: Yes oriented to person, Yes oriented to place and Yes oriented to time Psych: COMMON NORMALS: mental status grossly normal and Normal thought process present THOUGHT PROCESS: Normal thought process present Skin: COMMON NORMALS: no rashes or lesions noted GENERAL SKIN EXAM: no rashes or lesions noted Course Vital Signs: Vital signs: Vital Signs Temperature 98.2 F 02/01/24 17:00 Pulse Rate 82 02/01/24 17:43 Respiratory Rate 18 02/01/24 17:09 Blood Pressure 127/94 02/01/24 17:43 Pulse Oximetry 99 02/01/24 17:43 Oxygen Delivery Me thod Room Air 02/01/24 17:09 MDM - Dizziness Medical Decision Making Patient presented by ambulance from long term for an episode of dizziness and lightheadedness just prior to arrival. Per long term staff, patient had been snorting nicotine all day. At this time patient had only complained of a headache, and after receiving IV Toradol here in the emergency department reported relief of this. EKG obtained and reviewed with physicians are normal sinus rhythm no acute STEMI. Patient does have a history of asthma. Being that he had no other complaints, he is vestibular symptoms likely secondary to the copious use of nicotine. Advised him to quit snorting nicotine and to return if his symptoms worsen or persist. No further testing or imaging warranted at this time and he will be discharged back to long term. Case discussed with Dr. Dillon. No radiology studies performed this visit Discharge Plan Discharge Patient Disposition: Home Clinical Impression: Nicotine abuse, Dizziness Condition: Stable Prescriptions: No Action lisinopril 20 mg tablet 20 mg PO DAILY Qty: 30 5RF hydrochlorothiazide 25 mg tablet 25 mg PO DAILY Qty: 30 5RF albuterol sulfate 90 mcg/actuation HFA aerosol inhaler 2 puff inhalation Q6H PRN (Reason: shortness of breath or wheezing) Qty: 8.5 3RF montelukast 10 mg tablet 10 mg PO DAILY Qty: 30 5RF clindamycin HCl 300 mg capsule 300 mg PO TID Qty: 21 0RF ciprofloxacin HCl 500 mg tablet 500 mg PO BID Qty: 14 0RF ibuprofen 200 mg Tablet 200 mg PO Q6H PRN (Reason: Pain) Excedrin Migraine 250-250-65 mg Tablet 1 tab PO Q6H PRN (Reason: Migraine Headache) mupirocin 2 % ointment 1 applic topical BID Qty: 15 0RF ibuprofen 600 mg tablet 600 mg PO Q6H PRN (Reason: pain) Qty: 60 0RF acetaminophen 650 mg tablet extended release 650 mg PO Q8H PRN (Reason: pain) Qty: 60 0RF albuterol sulfate 90 mcg/actuation HFA aerosol inhaler 2 inh inhalation Q4H PRN (Reason: shortness of breath or wheezing) Qty: 6.7 0RF Rx Instructions: Please provide patient with a spacer Discharge Orders: Discharge ED (Routine); Ordered 02/01/24 Ordered By: Facundo Dowling Discharge Diet: Usual diet Discharge Activity: Increase activity as tolerated Patient Instructions: Opioid Safety, Pain Management Activity Restrictions/Additional Instructions: Please avoid snorting nicotine as this will continue to cause dizziness that you experienced today. Follow-up with primary care, return with any new or worsening symptoms. 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
[2024-02-01] MEDS: ketorolac 30 mg/mL INJ IVP (17:21)
[2024-02-01 17:43] VITALS: BP 127/94; PULSE 82; O2SAT 99
== END 2024-02-01 17:45 | disposition home or self-care (01) ==
PROVIDERS: Emergency Provider Physician Assistant
DX: F17.210 Nicotine dependence, cigarettes, uncomplicated (principal); F17.220 Nicotine dependence, chewing tobacco, uncomplicated; R42 Dizziness and giddiness; R51.9 Headache, unspecified
CPT/HCPCS: 93005; 96374; 99284; J1885

== ENCOUNTER 2024-02-04 21:16 | Emergency (ER) | payer MEDICAID, SELFPAY ==
[2024-02-04 21:20] VITALS: BP 124/76; PULSE 76; RESP 20; TEMP 36.6; O2SAT 96; BMI 34.0
--- NOTE | 2024-02-04 21:26 | W.ED.HA ---
HPI - Headache General: Chief Complaint: Headache Stated Complaint: HEADACHE Time Seen by Provider: 02/04/24 21:21 History of Present Illness: 28-year-old male patient comes in today for complaints of headache with no relief from acetaminophen or ibuprofen and a peeling callus to his right heel. Patient appears nontoxic. Patient appears in no acute distress. Related Data Home Medications Medication Instructions Recorded Confirmed lxzwmnj-qxucepqqdycqn-wnyeufdh 250 1 tab PO Q6H PRN Migraine Headache 04/15/20 04/19/23 mg-250 mg-65 mg tablet (Excedrin Migraine) ibuprofen 200 mg tablet 200 mg PO Q6H PRN Pain 04/15/20 04/19/23 Previous Rx's Medication Instructions Recorded albuterol sulfate 90 mcg/actuation 2 puff inhalation Q6H PRN 10/02/22 aerosol inhaler shortness of breath or wheezing #8.5 grams hydrochlorothiazide 25 mg tablet 25 mg PO DAILY blood pressure #30 10/02/22 tabs lisinopril 20 mg tablet 20 mg PO DAILY blood pressure #30 10/02/22 tabs montelukast 10 mg tablet 10 mg PO DAILY asthma #30 tabs 10/02/22 mupirocin 2 % topical ointment 1 applic topical BID #15 grams 04/10/23 ciprofloxacin HCl 500 mg tablet 500 mg PO BID #14 tabs 04/12/23 clindamycin HCl 300 mg capsule 300 mg PO TID #21 caps 04/12/23 acetaminophen 650 mg 650 mg PO Q8H PRN pain #60 tabs 01/09/24 tablet,extended release ibuprofen 600 mg tablet 600 mg PO Q6H PRN pain #60 tabs 01/09/24 albuterol sulfate 90 mcg/actuation 2 inh inhalation Q4H PRN shortness 01/13/24 aerosol inhaler of breath or wheezing #6.7 grams triamcinolone acetonide 0.025 % 1 applic topical BID #80 grams 02/04/24 topical ointment Allergies Allergy/AdvReac Type Severity Reaction Status Date / Time haloperidol Allergy ALGY-Anaphy Verified 04/19/23 15:24 laxis Review of Systems General: Reports: 10 or more systems reviewed and unremarkable except in HPI and below Neuro: Reports: headache(s) PFSH ED PFSH: Medical History (Updated 02/04/24 @ 21:35 by NANCY Alfaro) Asthma HTN (hypertension) with goal to be determined ADD (attention deficit disorder) Bipolar 1 disorder Post traumatic stress disorder (PTSD) Dental caries Surgical History History of hernia surgery Family History Father Additional heart attack (anterolateral wall) Stroke Mother COPD (chronic obstructive pulmonary disease) Social History Smoking and tobacco/nicotine status: current every day tobacco/nicotine user cigarettes and smokeless tobacco Smokeless tobacco user: chewing tobacco Quit status (tobacco/nicotine): not considering quitting Second hand smoke exposure: No Alcohol intake: former Substance/Drug Use: former Physical Exam Const: COMMON NORMALS: alert HENMT: COMMON NORMALS: normocephalic HEAD & SCALP: normocephalic Neck/C-Spine: COMMON NORMALS: full ROM Resp: COMMON NORMALS: normal respiratory effort and clear to auscultation bilaterally AUSCULTATION: clear to auscultation bilaterally Cardio: COMMON NORMALS: regular rate RATE: regular rate GI: COMMON NORMALS: non-tender Back/Pelvis: COMMON NORMALS: thoracic and lumbar spine normal to inspection Extremity: COMMON NORMALS: normal to inspection Neuro: SENSORIUM/ORIENTATION: Yes alert Skin: NARRATIVE SKIN EXAM: Thickened calluses to bilateral heels of feet. On the right foot patient has a peeling callus. Course Vital Signs: Vital signs: Vital Signs Temperature 98 F 02/04/24 21:20 Pulse Rate 76 02/04/24 21:20 Respiratory Rate 20 H 02/04/24 21:20 Blood Pressure 124/76 02/04/24 21:20 Pulse Oximetry 96 02/04/24 21:20 MDM - Headache Medical Decision Making 28-year-old male patient comes in today with headache that has not improved after Tylenol and ibuprofen. Patient also has some peeling callus that he would like to have managed. Patient appears nontoxic. Patient appears in no acute distress. Differential diagnosis includes migraine headache, tension headache, malingering, callus of the heel. The use of a 10 blade scalpel the callus was pared away to the new tissue. Patient be written for some triamcinolone cream to use on the callus to help with softening of the skin and inflammation. Patient was also given a headache cocktail of metoclopramide, diphenhydramine, ketorolac, and dexamethasone. Patient had improvement of headache and was discharged back to the [facility]. No radiology studies performed this visit Discharge Plan Discharge Patient Disposition: Home Clinical Impression: Heel callus Migraine Qualifiers: Migraine type: unspecified Status migrainosus presence: without status migrainosus Intractability: not intractable Qualified Code(s): G43.909 - Migraine, unspecified, not intractable, without status migrainosus Condition: Stable Prescriptions: New triamcinolone acetonide 0.025 % ointment 1 applic topical BID Qty: 80 0RF No Action lisinopril 20 mg tablet 20 mg PO DAILY Qty: 30 5RF hydrochlorothiazide 25 mg tablet 25 mg PO DAILY Qty: 30 5RF albuterol sulfate 90 mcg/actuation HFA aerosol inhaler 2 puff inhalation Q6H PRN (Reason: shortness of breath or wheezing) Qty: 8.5 3RF montelukast 10 mg tablet 10 mg PO DAILY Qty: 30 5RF clindamycin HCl 300 mg capsule 300 mg PO TID Qty: 21 0RF ciprofloxacin HCl 500 mg tablet 500 mg PO BID Qty: 14 0RF ibuprofen 200 mg Tablet 200 mg PO Q6H PRN (Reason: Pain) Excedrin Migraine 250-250-65 mg Tablet 1 tab PO Q6H PRN (Reason: Migraine Headache) mupirocin 2 % ointment 1 applic topical BID Qty: 15 0RF ibuprofen 600 mg tablet 600 mg PO Q6H PRN (Reason: pain) Qty: 60 0RF acetaminophen 650 mg tablet extended release 650 mg PO Q8H PRN (Reason: pain) Qty: 60 0RF albuterol sulfate 90 mcg/actuation HFA aerosol inhaler 2 inh inhalation Q4H PRN (Reason: shortness of breath or wheezing) Qty: 6.7 0RF Rx Instructions: Please provide patient with a spacer Discharge Orders: Discharge ED (Routine); Ordered 02/04/24 Ordered By: Ricky Saldana Discharge Diet: Usual diet Discharge Activity: Increase activity as tolerated Patient Instructions: Calluses and Corns Activity Restrictions/Additional Instructions: Continue with routine care for headache. Use triamcinolone ointment to the calluses on your feet to help with softening and continue removal of the callus. Follow-up with primary care for further instructions. 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
[2024-02-04] MEDS: diphenhydrAMINE 50 mg/mL SDV 1mL 12.5 MG IVP (21:37)
[2024-02-04] MEDS: ketorolac 30 mg/mL INJ 15 MG IVP (21:38)
[2024-02-04] MEDS: dexamethasone 4 mg/mL INJ IVP (21:40)
[2024-02-04] MEDS: metoclopramide 5 mg/mL SDV 2 mL 10 MG IVP (21:41)
[2024-02-04 21:46] VITALS: BP 124/78; PULSE 84; O2SAT 99
[2024-02-04] MEDS: bacitracin ointment Pkt 1 EACH TOPICAL (21:46)
[2024-02-04 21:55] VITALS: BP 142/104; PULSE 74; O2SAT 99
== END 2024-02-04 21:58 | disposition home or self-care (01) ==
PROVIDERS: Emergency Provider Nurse Practitioner Family
DX: G43.909 Migraine, unspecified, not intractable, without status migrainosus (principal); L84 Corns and callosities; F17.210 Nicotine dependence, cigarettes, uncomplicated; F17.220 Nicotine dependence, chewing tobacco, uncomplicated; I10 Essential (primary) hypertension
CPT/HCPCS: 96374; 96375; 99284; J1100; J1200; J1885; J2765

== ENCOUNTER 2024-02-10 22:08 | Emergency (ER) | payer MEDICAID, SELFPAY ==
[2024-02-10 22:11] VITALS: BP 132/86; PULSE 88; RESP 18; TEMP 36.6; O2SAT 97; BMI 26.6
[2024-02-10 22:18] VITALS: BP 114/95; PULSE 82; O2SAT 96
--- NOTE | 2024-02-10 22:20 | XRR_ITS ---
PROCEDURE INFORMATION: Exam: XR Right Hand Exam date and time: 02/10/2024 10:25 PM Age: 28 years old Clinical indication: Injury or trauma; Other: Punched wall; Blunt trauma (contusions or hematomas); Hand; Right; Additional info: Right hand pain S/P punching wall TECHNIQUE: Imaging protocol: Radiologic exam of the right hand. Views: 3 or more views. COMPARISON: No relevant prior studies available. FINDINGS: Bones/joints: Normal. Soft tissues: Normal. XR/XR hand RT min 3V* [id number] IMPRESSION: No acute findings.
[2024-02-10] MEDS: ketorolac 60 mg/2 mL INJ IM (22:43)
--- NOTE | 2024-02-10 22:55 | W.ED.EXTPRO ---
HPI - Extremity Problem General: Chief complaint: Extremity Injury, Upper Stated complaint: Hand Fx Time Seen by Provider: 02/10/24 22:18 Source: patient Mode of arrival: EMS Limitations: no limitations History of Present Illness: Patient is a 28-year-old male presenting to the emergency department from [facility] due to a right hand injury onset tonight. He reportedly punched a wall when he found out he was going to be in correction for a few more weeks, is reporting pain to the ulnar aspect of his right hand. Reports limited range of motion, and numbness extending down to his pinky. There is no skin breakdown or other concerning signs or symptoms at this time. MD Complaint: extremity pain Onset (ago): hour(s) Pain Consistency: constant Location: right and upper extremity Radiation: distal Associated symptoms: Deny chest pain, fever(s) or rash Related Data Home Medications Medication Instructions Recorded Confirmed [id number] 250 1 tab PO Q6H PRN Migraine Headache 04/15/20 04/19/23 mg-250 mg-65 mg tablet (Excedrin Migraine) ibuprofen 200 mg tablet 200 mg PO Q6H PRN Pain 04/15/20 04/19/23 Previous Rx's Medication Instructions Recorded albuterol sulfate 90 mcg/actuation 2 puff inhalation Q6H PRN 10/02/22 aerosol inhaler shortness of breath or wheezing #8.5 grams hydrochlorothiazide 25 mg tablet 25 mg PO DAILY blood pressure #30 10/02/22 tabs lisinopril 20 mg tablet 20 mg PO DAILY blood pressure #30 10/02/22 tabs montelukast 10 mg tablet 10 mg PO DAILY asthma #30 tabs 10/02/22 mupirocin 2 % topical ointment 1 applic topical BID #15 grams 04/10/23 ciprofloxacin HCl 500 mg tablet 500 mg PO BID #14 tabs 04/12/23 clindamycin HCl 300 mg capsule 300 mg PO TID #21 caps 04/12/23 acetaminophen 650 mg 650 mg PO Q8H PRN pain #60 tabs 01/09/24 tablet,extended release ibuprofen 600 mg tablet 600 mg PO Q6H PRN pain #60 tabs 01/09/24 albuterol sulfate 90 mcg/actuation 2 inh inhalation Q4H PRN shortness 01/13/24 aerosol inhaler of breath or wheezing #6.7 grams triamcinolone acetonide 0.025 % 1 applic topical BID #80 grams 02/04/24 topical ointment Allergies Allergy/AdvReac Type Severity Reaction Status Date / Time haloperidol Allergy ALGY-Anaphy Verified 04/19/23 15:24 laxis Review of Systems General: Reports: 10 or more systems reviewed and unremarkable except in HPI and below Const: Denies: fever(s) or chills Card: Denies: chest pain Resp: Denies: dyspnea or productive cough GI: Denies: abdominal pain, nausea, vomiting or diarrhea : Denies: flank pain Musc: Reports: extremity pain (Right hand) and limited range of motion; Denies: neck pain, back pain, extremity swelling, joint pain, joint swelling, joint redness, joint warmth or muscle weakness Skin/Breast: Denies: rash Neuro: Denies: headache(s), numbness in extremities or weakness in extremities PFSH ED PFSH: Medical History Asthma HTN (hypertension) with goal to be determined ADD (attention deficit disorder) Bipolar 1 disorder Post traumatic stress disorder (PTSD) Dental caries Surgical History History of hernia surgery Family History Father Additional heart attack (anterolateral wall) Stroke Mother COPD (chronic obstructive pulmonary disease) Social History Smoking and tobacco/nicotine status: current every day tobacco/nicotine user cigarettes and smokeless tobacco Smokeless tobacco user: chewing tobacco Quit status (tobacco/nicotine): not considering quitting Second hand smoke exposure: No Alcohol intake: former Substance/Drug Use: former Physical Exam Const: COMMON NORMALS: no acute distress, patient oriented x3, no limitations, healthy appearing, alert and well nourished HENMT: COMMON NORMALS: normocephalic and atraumatic HEAD & SCALP: normocephalic and atraumatic Neck/C-Spine: COMMON NORMALS: full ROM, supple and no meningeal signs Resp: COMMON NORMALS: normal respiratory effort and No use of accessory muscles Extremity: COMMON NORMALS: normal to inspection, capillary refill normal, no joint enlargement and no clubbing, cyanosis or edema NARRATIVE EXTREMITY EXAM: Pain with range of motion, flexion and extension of the fingers on the right hand. There is reproducible tenderness to palpation of the ulnar aspect of the right hand, worse on the dorsum side. No bruising or swelling noted. Neuro: COMMON NORMALS: patient oriented x3, moves all extremities, no focal motor deficits and no sensory deficits noted SENSORIUM/ORIENTATION: Yes alert MENINGEAL SIGNS: Yes no meningeal signs Skin: COMMON NORMALS: no rashes or lesions noted GENERAL SKIN EXAM: no rashes or lesions noted Course Vital Signs: Vital signs: Vital Signs Temperature 98 F 02/10/24 22:11 Pulse Rate 82 02/10/24 22:18 Respiratory Rate 18 02/10/24 22:11 Blood Pressure 114/95 02/10/24 22:18 Pulse Oximetry 96 02/10/24 22:18 Oxygen Delivery Me thod Room Air 02/10/24 22:18 MDM - Extremity (Nontraumatic) Medical Decision Making Patient punched a wall in correction, arrives with pain to ulnar aspect. Did suspect a boxer's fracture potentially, though x-ray did not demonstrate this. We will wrap and compression bandage, and he is instructed that if he continues to have pain to follow back up for repeat imaging a week to make sure there are no small fractures. RICE therapy discussed, he will be discharged back to [facility]. Lab Data Radiology Impressions Hand X-Ray 02/10/24 22:20 IMPRESSION: No acute findings. All radiology interpretation(s) finalized by discharge Discharge Plan Discharge Patient Disposition: Home Clinical Impression: Contusion of hand, right Qualifiers: Encounter type: initial encounter Qualified Code(s): S60.221A - Contusion of right hand, initial encounter Condition: Stable Prescriptions: No Action lisinopril 20 mg tablet 20 mg PO DAILY Qty: 30 5RF hydrochlorothiazide 25 mg tablet 25 mg PO DAILY Qty: 30 5RF albuterol sulfate 90 mcg/actuation HFA aerosol inhaler 2 puff inhalation Q6H PRN (Reason: shortness of breath or wheezing) Qty: 8.5 3RF montelukast 10 mg tablet 10 mg PO DAILY Qty: 30 5RF clindamycin HCl 300 mg capsule 300 mg PO TID Qty: 21 0RF ciprofloxacin HCl 500 mg tablet 500 mg PO BID Qty: 14 0RF ibuprofen 200 mg Tablet 200 mg PO Q6H PRN (Reason: Pain) Excedrin Migraine 250-250-65 mg Tablet 1 tab PO Q6H PRN (Reason: Migraine Headache) mupirocin 2 % ointment 1 applic topical BID Qty: 15 0RF ibuprofen 600 mg tablet 600 mg PO Q6H PRN (Reason: pain) Qty: 60 0RF acetaminophen 650 mg tablet extended release 650 mg PO Q8H PRN (Reason: pain) Qty: 60 0RF albuterol sulfate 90 mcg/actuation HFA aerosol inhaler 2 inh inhalation Q4H PRN (Reason: shortness of breath or wheezing) Qty: 6.7 0RF Rx Instructions: Please provide patient with a spacer triamcinolone acetonide 0.025 % ointment 1 applic topical BID Qty: 80 0RF Discharge Orders: Discharge ED (Routine); Ordered 02/11/24 Ordered By: Facundo Dowling Patient Instructions: Pain Management Activity Restrictions/Additional Instructions: Rest, ice, compression, and elevation. Tylenol and ibuprofen for pain. Avoid reinjury. Follow-up with primary care. Coding Level of Care Code ED Working Second Hand for Burt Brenner
== END 2024-02-11 00:54 | disposition home or self-care (01) ==
PROVIDERS: Emergency Provider Physician Assistant
DX: S60.221A Contusion of right hand, initial encounter (principal); I10 Essential (primary) hypertension; F17.210 Nicotine dependence, cigarettes, uncomplicated; F17.290 Nicotine dependence, other tobacco product, uncomplicated; W22.09XA Striking against other stationary object, initial encounter; Y92.149 Unspecified place in prison as the place of occurrence of the external cause
CPT/HCPCS: 73130; 96372; 99284; J1885

== ENCOUNTER 2024-02-14 22:27 | Emergency (ER) | payer MEDICAID, SELFPAY ==
[2024-02-14 22:33] VITALS: BP 129/83; PULSE 87; RESP 16; TEMP 36.8; O2SAT 97; BMI 33.0
--- NOTE | 2024-02-14 22:38 | ED_ITS ---
HPI - Headache General: Chief Complaint: Headache Stated Complaint: headache Time Seen by Provider: 02/14/24 22:35 History of Present Illness: 28-year-old man who presents the emergen cy room from [facility]. He has been to the emergency room multiple times recently. Today he has a recurrent headache. He says ibuprofen and Tylenol have not been helping. He has a history of headaches in the past. No altered mental status. No focal motor deficits. No chest pain. Related Data Home Medications Medication Instructions Recorded Confirmed [id number] 250 1 tab PO Q6H PRN Migraine Headache 04/15/20 04/19/23 mg-250 mg-65 mg tablet (Excedrin Migraine) ibuprofen 200 mg tablet 200 mg PO Q6H PRN Pain 04/15/20 04/19/23 Previous Rx's Medication Instructions Recorded albuterol sulfate 90 mcg/actuation 2 puff inhalation Q6H PRN 10/02/22 aerosol inhaler shortness of breath or wheezing #8.5 grams hydrochlorothiazide 25 mg tablet 25 mg PO DAILY blood pressure #30 10/02/22 tabs lisinopril 20 mg tablet 20 mg PO DAILY blood pressure #30 10/02/22 tabs montelukast 10 mg tablet 10 mg PO DAILY asthma #30 tabs 10/02/22 mupirocin 2 % topical ointment 1 applic topical BID #15 grams 04/10/23 ciprofloxacin HCl 500 mg tablet 500 mg PO BID #14 tabs 04/12/23 clindamycin HCl 300 mg capsule 300 mg PO TID #21 caps 04/12/23 acetaminophen 650 mg 650 mg PO Q8H PRN pain #60 tabs 01/09/24 tablet,extended release ibuprofen 600 mg tablet 600 mg PO Q6H PRN pain #60 tabs 01/09/24 albuterol sulfate 90 mcg/actuation 2 inh inhalation Q4H PRN shortness 01/13/24 aerosol inhaler of breath or wheezing #6.7 grams triamcinolone acetonide 0.025 % 1 applic topical BID #80 grams 02/04/24 topical ointment Allergies Allergy/AdvReac Type Severity Reaction Status Date / Time haloperidol Allergy ALGY-Anaphy Verified 04/19/23 15:24 laxis Review of Systems Narrative: Constitutional symptoms: Negative except as documented in HPI. Skin symptoms: Negative except as documented in HPI. Eye symptoms: Negative except as documented in HPI. ENMT symptoms: Negative except as documented in HPI. Respiratory symptoms: Negative except as documented in HPI. Cardiovascular symptoms: Negative except as documented in HPI. Gastrointestinal symptoms: Negative except as documented in HPI. Genitourinary symptoms: Negative except as documented in HPI. Musculoskeletal symptoms: Negative except as documented in HPI. Neurologic symptoms: Negative except as documented in HPI. Psychiatric symptoms: Negative except as documented in HPI. Endocrine symptoms: Negative except as documented in HPI. PFSH ED PFSH: Medical History Asthma HTN (hypertension) with goal to be determined ADD (attention deficit disorder) Bipolar 1 disorder Post traumatic stress disorder (PTSD) Dental caries Surgical History History of hernia surgery Family History Father Additional heart attack (anterolateral wall) Stroke Mother COPD (chronic obstructive pulmonary disease) Social History Smoking and tobacco/nicotine status: current every day tobacco/nicotine user cigarettes and smokeless tobacco Smokeless tobacco user: chewing tobacco Quit status (tobacco/nicotine): not considering quitting Second hand smoke exposure: No Alcohol intake: former Substance/Drug Use: former Physical Exam Narrative: EXAM NARRATIVE: General: Alert, no acute distress. Skin: Warm, dry. Head: Normocephalic, atraumatic. Neck: Supple, trachea midline. Eye: Extraocular movements are intact. Ears, nose, mouth and throat: mucosa moist. Cardiovascular: Regular, Normal peripheral perfusion. Respiratory: Lungs are clear to auscultation, respirations are non-labored, breath sounds are equal, Symmetrical chest wall expansion. Gastrointestinal: Soft, Nontender, Non distended Musculoskeletal: Normal ROM, no deformity. Neurological: Alert and oriented, No focal neurological deficit observed. Psychiatric: Cooperative, appropriate mood & affect. Course Vital Signs: Vital signs: Vital Signs Temperature 98.3 F 02/14/24 22:33 Pulse Rate 87 02/14/24 22:33 Respiratory Rate 16 02/14/24 22:33 Blood Pressure 129/83 02/14/24 22:33 Pulse Oximetry 97 02/14/24 22:33 Oxygen Delivery Me thod Room Air 02/14/24 22:33 MDM - Headache Medical Decision Making I reviewed the patient's medical record. Reexamination: Patient remained stable. No increased work of breathing. No altered mental status. No focal motor deficits. Assessment and plan: Headache ?Toradol, Benadryl and Reglan in the emergency room - Discharged home - Discussed plan with patient. Answered any questions. - Evaluation and treatment of this problem were appropriate in the emergency setting. No radiology studies performed this visit Discharge Plan Discharge Patient Disposition: Home Clinical Impression: Headache Condition: Stable Prescriptions: No Action lisinopril 20 mg tablet 20 mg PO DAILY Qty: 30 5RF hydrochlorothiazide 25 mg tablet 25 mg PO DAILY Qty: 30 5RF albuterol sulfate 90 mcg/actuation HFA aerosol inhaler 2 puff inhalation Q6H PRN (Reason: shortness of breath or wheezing) Qty: 8.5 3RF montelukast 10 mg tablet 10 mg PO DAILY Qty: 30 5RF clindamycin HCl 300 mg capsule 300 mg PO TID Qty: 21 0RF ciprofloxacin HCl 500 mg tablet 500 mg PO BID Qty: 14 0RF ibuprofen 200 mg Tablet 200 mg PO Q6H PRN (Reason: Pain) Excedrin Migraine 250-250-65 mg Tablet 1 tab PO Q6H PRN (Reason: Migraine Headache) mupirocin 2 % ointment 1 applic topical BID Qty: 15 0RF ibuprofen 600 mg tablet 600 mg PO Q6H PRN (Reason: pain) Qty: 60 0RF acetaminophen 650 mg tablet extended release 650 mg PO Q8H PRN (Reason: pain) Qty: 60 0RF albuterol sulfate 90 mcg/actuation HFA aerosol inhaler 2 inh inhalation Q4H PRN (Reason: shortness of breath or wheezing) Qty: 6.7 0RF Rx Instructions: Please provide patient with a spacer triamcinolone acetonide 0.025 % ointment 1 applic topical BID Qty: 80 0RF Discharge Orders: Discharge ED (Routine); Ordered 02/14/24 Ordered By: Mahi Paul Discharge Diet: Usual diet Discharge Activity: Increase activity as tolerated Patient Instructions: General Headache (ED) Activity Restrictions/Additional Instructions: Thank you for choosing [facility] for your healthcare needs today. Please realize this is an emergency room and that we are providing you with a medical screening exam and this may not be complete and all inclusive of all the testing and or work up that you may need to determine your ailment or severity of your illness. You have been screened and evaluated and felt safe for discharge. Health conditions do change or evolve sometimes and as such it is important that you follow up with your Primary Doctor to be re checked, 3-5 days is a general good time frame for follow up. You are always welcome to return to the ED for re assessment if your symptoms are worsening or you have new concerns Coding Level of Care Code ED Network Operations Project Manager for Burt Brenner
[2024-02-14] MEDS: diphenhydrAMINE 50 mg/mL SDV 1mL IVP (22:48)
[2024-02-14] MEDS: ketorolac 30 mg/mL INJ IVP (22:48)
[2024-02-14] MEDS: metoclopramide 5 mg/mL SDV 2 mL 10 MG IVP (22:48)
[2024-02-14 23:30] VITALS: PULSE 78; O2SAT 98
== END 2024-02-14 23:32 | disposition home or self-care (01) ==
PROVIDERS: Emergency Provider Emergency Medicine
DX: R51.9 Headache, unspecified (principal); I10 Essential (primary) hypertension; F17.220 Nicotine dependence, chewing tobacco, uncomplicated
CPT/HCPCS: 96374; 96375; 99284; J1200; J1885; J2765

== ENCOUNTER 2024-02-21 20:52 | Emergency (ER) | payer MEDICAID, SELFPAY ==
[2024-02-21 20:53] VITALS: BP 124/89; PULSE 88; RESP 20; TEMP 37.1; O2SAT 99
--- NOTE | 2024-02-21 20:58 | ECG_ITS ---
[employer] [facility] Test Date: 2024-02-21 Pat Name: Sumeet Trevizo Department: Room: Gender: Male Home Service Director: : 1995 Requested By: Rehana Dillon Order Number: [id number] Willy MD: AGUSTINA ROUSSEAU Measurements Intervals [place] Rate: 76 P: 52 WV: 171 QRS: -18 QRSD: 113 T: 43 QT: 374 QTc: 422 Interpretive Statements SINUS RHYTHM LOW QRS VOLTAGE IN PRECORDIAL LEADS [QRS DEFLECTION < 1.0 mV IN CHEST LEADS] MODERATE INTRAVENTRICULAR CONDUCTION DELAY [110+ ms QRS DURATION] MINIMAL VOLTAGE CRITERIA FOR LVH, CONSIDER NORMAL VARIANT [MEETS CRITERIA IN ONE OF: R(aVL), S(V1), R(V5), R(V5/V6)+S(V1)] Compared to ECG 02/01/2024 17:00:10 Intraventricular conduction delay now present Incomplete right bundle-branch block no longer present Electronically Signed On 02-22-2024 20:59:57 CDT by AGUSTINA ROUSSEAU [id number]
--- NOTE | 2024-02-21 20:58 | XRR_ITS ---
PROCEDURE INFORMATION: Exam: XR Chest Exam date and time: 02/21/2024 9:04 PM Age: 28 years old Clinical indication: Pain; Chest pressure; Additional info: Cp TECHNIQUE: Imaging protocol: Radiologic exam of the chest. Views: 1 view. COMPARISON: CR (CHEST, ) 01/22/2024 8:43 PM FINDINGS: Lungs: Unremarkable. No consolidation. Pleural spaces: Unremarkable. No pleural effusion. No pneumothorax. Heart/Mediastinum: Unremarkable. No cardiomegaly. Bones/joints: Unremarkable. XR/XR chest 1V portable [id number] IMPRESSION: No acute findings.
--- NOTE | 2024-02-21 21:00 | CTR_ITS ---
PROCEDURE INFORMATION: Exam: CT Head Without Contrast Exam date and time: 02/21/2024 9:30 PM Age: 28 years old Clinical indication: Injury or trauma; Additional info: Head injury TECHNIQUE: Imaging protocol: Computed tomography of the head without contrast. Radiation optimization: All CT scans at this facility use at least one of these dose optimization techniques: automated exposure control; mA and/or kV adjustment per patient size (includes targeted exams where dose is matched to clinical indication); or iterative reconstruction. COMPARISON: No relevant prior studies available. RADIATION DOSE METRICS: Total DLP (mGy-cm): 1353.38 FINDINGS: Brain: Normal. No hemorrhage. Unremarkable white matter. No mass effect. Cerebral ventricles: No ventriculomegaly. Paranasal sinuses: Visualized sinuses are unremarkable. No fluid levels. Mastoid air cells: Visualized mastoid air cells are well aerated. Bones: Unremarkable. No acute fracture. Soft tissues: Unremarkable. CT/CT head wo con* [id number] IMPRESSION: No acute intracranial abnormality.
--- NOTE | 2024-02-21 21:02 | ED_ITS ---
HPI - Chest Pain 2 General: Chief Complaint: Chest Pain Stated Complaint: CHEST PAIN Time Seen by Provider: 02/21/24 20:53 Source: patient and EMS Mode of arrival: EMS Limitations: no limitations History of Present Illness: 28-year-old male who is here from care home [facility] has been having chest pain and night states been a sharp pain in the center of his chest he states he had also passed out and hit his head he has a headache from hitting his head. States this happened just prior to arrival states pain in his chest is still there sharp in nature he denies any vomiting or diarrhea Associated symptoms: Deny abdominal pain, dyspnea, fever(s), nausea or vomiting Related Data Home Medications Medication Instructions Recorded Confirmed [id number] 250 1 tab PO Q6H PRN Migraine Headache 04/15/20 04/19/23 mg-250 mg-65 mg tablet (Excedrin Migraine) ibuprofen 200 mg tablet 200 mg PO Q6H PRN Pain 04/15/20 04/19/23 Previous Rx's Medication Instructions Recorded albuterol sulfate 90 mcg/actuation 2 puff inhalation Q6H PRN 10/02/22 aerosol inhaler shortness of breath or wheezing #8.5 grams hydrochlorothiazide 25 mg tablet 25 mg PO DAILY blood pressure #30 10/02/22 tabs lisinopril 20 mg tablet 20 mg PO DAILY blood pressure #30 10/02/22 tabs montelukast 10 mg tablet 10 mg PO DAILY asthma #30 tabs 10/02/22 mupirocin 2 % topical ointment 1 applic topical BID #15 grams 04/10/23 ciprofloxacin HCl 500 mg tablet 500 mg PO BID #14 tabs 04/12/23 clindamycin HCl 300 mg capsule 300 mg PO TID #21 caps 04/12/23 acetaminophen 650 mg 650 mg PO Q8H PRN pain #60 tabs 01/09/24 tablet,extended release ibuprofen 600 mg tablet 600 mg PO Q6H PRN pain #60 tabs 01/09/24 albuterol sulfate 90 mcg/actuation 2 inh inhalation Q4H PRN shortness 01/13/24 aerosol inhaler of breath or wheezing #6.7 grams triamcinolone acetonide 0.025 % 1 applic topical BID #80 grams 02/04/24 topical ointment Allergies Allergy/AdvReac Type Severity Reaction Status Date / Time haloperidol Allergy ALGY-Anaphy Verified 04/19/23 15:24 laxis Review of Systems 2 Const: Denies: fever(s), chills, body aches or change in appetite ENMT: Denies: throat pain or dental pain Card: Reports: chest pain Resp: Denies: dyspnea GI: Denies: abdominal pain, nausea, vomiting or diarrhea Musc: Denies: neck pain or back pain Skin/Breast: Denies: rash Neuro: Reports: headache(s) PFSH ED 2 PFSH: Medical History Asthma HTN (hypertension) with goal to be determined ADD (attention deficit disorder) Bipolar 1 disorder Post traumatic stress disorder (PTSD) Dental caries Surgical History History of hernia surgery Family History Father Additional heart attack (anterolateral wall) Stroke Mother COPD (chronic obstructive pulmonary disease) Social History Smoking and tobacco/nicotine status: current every day tobacco/nicotine user cigarettes and smokeless tobacco Smokeless tobacco user: chewing tobacco Quit status (tobacco/nicotine): not considering quitting Second hand smoke exposure: No Alcohol intake: former Substance/Drug Use: former Physical Exam 2 Const: COMMON NORMALS: no acute distress, patient oriented x3 and healthy appearing HENMT: COMMON NORMALS: normocephalic and atraumatic HEAD & SCALP: n ormocephalic and atraumatic Eye: COMMON NORMALS: Equal, round and reactive pupils present and EOMs intact bilaterally PUPIL: Yes Equal, round and reactive pupils present Neck/C-Spine: COMMON NORMALS: full ROM and supple Chest: COMMONS NORMALS: normal inspection of the chest and normal palpation of entire chest wall Resp: COMMON NORMALS: normal respiratory effort, No retractions, No use of accessory muscles and clear to auscultation bilaterally AUSCULTATION: clear to auscultation bilaterally Cardio: COMMON NORMALS: regular rate, regular rhythm and No murmurs present (Cardio) RATE: regular rate RHYTHM: regular rhythm GI: COMMON NORMALS: Normal to inspection, nondistended, normoactive bowel sounds present, Soft to palpation, non-tender and no masses PALPATION: Yes Soft to palpation Extremity: COMMON NORMALS: normal to inspection and full ROM Neuro: COMMON NORMALS: patient oriented x3, moves all extremities and no focal motor deficits Psych: COMMON NORMALS: mental status grossly normal, Normal thought process present and cooperative THOUGHT PROCESS: Normal thought process present Skin: COMMON NORMALS: no rashes or lesions noted and no wounds GENERAL SKIN EXAM: no rashes or lesions noted Course 2 Vital Signs: Vital signs: Vital Signs Temperature 98.7 F 02/21/24 20:53 Pulse Rate 88 02/21/24 20:53 Respiratory Rate 20 H 02/21/24 20:53 Blood Pressure 124/89 02/21/24 20:53 Pulse Oximetry 99 02/21/24 20:53 Oxygen Delivery Me thod Room Air 02/21/24 20:53 MDM - Chest Pain Medical Decision Making Patient presents for chest pain is atypical in nature troponin here is negative EKG shows no acute findings head CT here is normal as well he is stable for discharge no signs of pulmonary embolism he is follow-up with PCP return if worsening Medical Records I reviewed the patient's medical records. Lab Data I reviewed the patient's lab results. 02/21/24 20:57 02/21/24 20:57 Radiology Impressions Chest X-Ray 02/21/24 20:58 IMPRESSION: No acute findings. Head CT 02/21/24 21:00 IMPRESSION: No acute intracranial abnormality. Laboratory Results WBC 11.01 10^3/uL (3.29-11.43) 02/21/24 20:57 RBC 4.73 10^6/uL (3.85-5.65) 02/21/24 20:57 Hgb 14.00 g/dL (11.27-16.99) 02/21/24 20:57 Hct 42.3 % (37-53) 02/21/24 20:57 MCV 89.4 fl (82-101) 02/21/24 20:57 MCH 29.6 pg (27-33) 02/21/24 20:57 MCHC 33.1 g/dL (30-55) 02/21/24 20:57 RDW 12.8 % (12.1-15.1) 02/21/24 20:57 Plt Count 267 10^3/cmm (157-399) 02/21/24 20:57 MPV 11.5 fL (7.4-10.4) H 02/21/24 20:57 Neut % (Auto) 72.1 % 02/21/24 20:57 Lymph % (Auto) 17.5 % 02/21/24 20:57 [place] % (Auto) 6.3 % 02/21/24 20:57 Eos % (Auto) 3.6 % 02/21/24 20:57 Baso % (Auto) 0.3 % 02/21/24 20:57 Neut # (Auto) 7.94 10^3/uL (1.8-7.7) H 02/21/24 20:57 Lymph # (Auto) 1.9 10^3/uL (0.8-4.8) 02/21/24 20:57 [place] # (Auto) 0.7 10^3/uL (0.2-0.9) 02/21/24 20:57 Eos # (Auto) 0.4 10^3/uL (0.0-0.8) 02/21/24 20:57 Baso # (Auto) 0.0 10^3/uL (0.0-0.1) 02/21/24 20:57 Nucleated RBC % (auto) 0 % 02/21/24 20:57 Nucleated RBCs # 0.0 /100WBC 02/21/24 20:57 Sodium 141 mmol/L (136-145) 02/21/24 20:57 Potassium 4.0 mmol/L (3.5-5.1) 02/21/24 20:57 Chloride 106 mmol/L (98-107) 02/21/24 20:57 Carbon Dioxide 26 mmol/L (22-29) 02/21/24 20:57 Anion Gap 13.0 (5-19) 02/21/24 20:57 BUN 11 mg/dL (6-20) 02/21/24 20:57 Creatinine 0.8 mg/dL (0.7-1.2) 02/21/24 20:57 GFR Calculation 113.5 mL/min (90-130) 02/21/24 20:57 Glucose 113 mg/dL (65-115) 02/21/24 20:57 Calculated Osmolality 292 mOsm/kg (285-295) 02/21/24 20:57 Calcium 9.1 mg/dL (8.5-10.5) 02/21/24 20:57 Total Bilirubin 0.4 mg/dL (0.15-1.2) 02/21/24 20:57 AST 25 U/L (0-40) 02/21/24 20:57 ALT 37 U/L (0-41) 02/21/24 20:57 Alkaline Phosphatase 64 U/L (40-130) 02/21/24 20:57 Troponin T Baseline 9 ng/L (0-15) 02/21/24 20:57 Total Protein 6.8 g/dL (6.6-8.7) 02/21/24 20:57 Albumin 4.4 g/dL (3.5-5.2) 02/21/24 20:57 Globulin 2.4 g/dL (1.3-4.6) 02/21/24 20:57 All radiology interpretation(s) finalized by discharge EKG Data EKG 1: I personally reviewed and interpreted this EKG as follows: EKG interpretation date: 02/21/24 EKG interpretation time: 21:24 Interpretation: nsr hr [address] elevation qrs 113 qtc 404 Clincial Decision Support The following clinical decision support tools were used to aid in care of the patient HEART Score -> History: Slightly Suspicous, EKG: Normal, Age: Less than 45 yrs, Risk Factors: No Risk Factors Known, Troponin: Baseline Trop <16 ng/L. Resulting HEART Score: 0. Discharge Plan Discharge Patient Disposition: Home Clinical Impression: Chest pain, Closed head injury Condition: Stable Prescriptions: No Action lisinopril 20 mg tablet 20 mg PO DAILY Qty: 30 5RF hydrochlorothiazide 25 mg tablet 25 mg PO DAILY Qty: 30 5RF albuterol sulfate 90 mcg/actuation HFA aerosol inhaler 2 puff inhalation Q6H PRN (Reason: shortness of breath or wheezing) Qty: 8.5 3RF montelukast 10 mg tablet 10 mg PO DAILY Qty: 30 5RF clindamycin HCl 300 mg capsule 300 mg PO TID Qty: 21 0RF ciprofloxacin HCl 500 mg tablet 500 mg PO BID Qty: 14 0RF ibuprofen 200 mg Tablet 200 mg PO Q6H PRN (Reason: Pain) Excedrin Migraine 250-250-65 mg Tablet 1 tab PO Q6H PRN (Reason: Migraine Headache) mupirocin 2 % ointment 1 applic topical BID Qty: 15 0RF ibuprofen 600 mg tablet 600 mg PO Q6H PRN (Reason: pain) Qty: 60 0RF acetaminophen 650 mg tablet extended release 650 mg PO Q8H PRN (Reason: pain) Qty: 60 0RF albuterol sulfate 90 mcg/actuation HFA aerosol inhaler 2 inh inhalation Q4H PRN (Reason: shortness of breath or wheezing) Qty: 6.7 0RF Rx Instructions: Please provide patient with a spacer triamcinolone acetonide 0.025 % ointment 1 applic topical BID Qty: 80 0RF Discharge Orders: Discharge ED (Routine); Ordered 02/21/24 Ordered By: Rehana Dillon Discharge Diet: Advance as tolerated Discharge Activity: Resume usual activity Patient Instructions: Chest Pain (ED), Head Injury (ED) Coding Level of Care Code ED 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
[2024-02-21 21:15] LABS: Basophils % 0.3 %; Eosinophils # 0.4 10^3/uL (0.0-0.8); Eosinophils % 3.6 %; Hematocrit 42.3 % (37-53); Lymphocytes # 1.9 10^3/uL (0.8-4.8); Lymphocytes % 17.5 %; Mean Corpuscular HGB Conc 33.1 g/dL (30-55); Mean Corpuscular Hemoglobin 29.6 pg (27-33); Mean Corpuscular Volume 89.4 fl (82-101); Mean Platelet Volume 11.5 fL (7.4-10.4); Monocytes # 0.7 10^3/uL (0.2-0.9); Monocytes % 6.3 %; Neutrophils # 7.94 10^3/uL (1.8-7.7); Neutrophils % 72.1 %; Nucleated Red Blood Cells % 0 %; Platelet Count 267 10^3/cmm (157-399); Red Blood Count 4.73 10^6/uL (3.85-5.65); Red Cell Distribution Width 12.8 % (12.1-15.1); White Blood Count 11.01 10^3/uL (3.29-11.43)
[2024-02-21 21:26] LABS: Troponin(5th) Baseline 9 ng/L (0-15)
[2024-02-21 21:28] LABS: Alanine Aminotransferase 37 U/L (0-41); Albumin Level 4.4 g/dL (3.5-5.2); Alkaline Phosphatase 64 U/L (40-130); Aspartate Amino Transferase 25 U/L (0-40); Blood Urea Nitrogen 11 mg/dL (6-20); Calcium 9.1 mg/dL (8.5-10.5); Carbon Dioxide 26 mmol/L (22-29); Chloride 106 mmol/L (98-107); Globulin 2.4 g/dL (1.3-4.6); Glomerular Filtration Rate 113.5 mL/min (90-130); Glucose 113 mg/dL (65-115); Osmolality Calculated 292 mOsm/kg (285-295); Sodium 141 mmol/L (136-145); Total Bilirubin 0.4 mg/dL (0.15-1.2); Total Protein 6.8 g/dL (6.6-8.7)
[2024-02-21 22:16] VITALS: BP 144/79; PULSE 72; RESP 16; O2SAT 99
[2024-02-21 22:59] LABS: Troponin 5 2HR 6.17 ng/L (0-15)
[2024-02-21 23:06] LABS: Troponin 5 2HR Delta -2.83 ABS# (0-10)
[2024-02-22] VITALS: BP 160/80; PULSE 87; RESP 16; O2SAT 93
== END 2024-02-22 | disposition home or self-care (01) ==
PROVIDERS: Emergency Provider Emergency Medicine
DX: R07.9 Chest pain, unspecified (principal); S09.90XA Unspecified injury of head, initial encounter; X58.XXXA Exposure to other specified factors, initial encounter
CPT/HCPCS: 70450; 71045; 80053; 84484; 85025; 93005; 99285